=== PATIENT | female | born 1955 | race Caucasian/White ===

== ENCOUNTER → 2016-05-28 | Outpatient (CLI) | payer OTHER ==
[~2016-05-28] MED LIST: CLB200; LRT5
--- NOTE | 2016-05-28 16:39 | MAMMOGRAPHY REPORT ---
BILATERAL DIGITAL SCREENING MAMMOGRAM WITH CAD: 05/28/2016 CLINICAL HISTORY: Routine screening. Patient has no complaints. TECHNIQUE: Bilateral CC, MLO and repeat right CC views were obtained. Current study was also evalua matthias with a Computer Aided Detection (CAD) system. COMPARISON: Comparison is made to exams dated: 05/26/2015 mammogram, 03/24/2013 mammogram, 05/24/2014 mammogram, 03/23/2012 mammogram, 03/18/2011 mammogram, and 03/07/2010 mammogram - [facility]. BREAST COMPOSITION: There are scattered areas of fibroglandular density in both breasts. FINDINGS: There are benign appearing punctate microcalcifications scattered throughout each breast, stable compared to prior exams. A few benign round calcifications as well. No suspicious mass, arc hitectural distortion or cluster of suspicious microcalcifications is seen. IMPRESSION: ACR BI-RADS CATEGORY 1: NEGATIVE There is no mammographic evidence of malignancy. A 1 year screening mammogram is recommended. The p atient will receive written notification of the results. Approximately 10% of breast cancers are not detected with mammography. A negative mammographic repor t should not delay biopsy if a clinically suggestive mass is present. Maddison Figueroa M.D. ay/:05/28/2016 16:30:15 Dentist: Vanessa HAQUE)(M), [facility] letter sent: Normal 1/2 BI-RADS Code: ACR BI-RADS Category 1: Negative
== END | disposition home or self-care (01) ==
LOC: C.MAMM 12:57
PROVIDERS: ATTEND Family Medicine
DX: Z12.31 Encounter for screening mammogram for malignant neoplasm of breast (principal)

== ENCOUNTER → 2017-05-30 | Outpatient (CLI) | payer OTHER ==
--- NOTE | 2017-06-02 07:33 | MAMMOGRAPHY REPORT ---
BILATERAL DIGITAL SCREENING MAMMOGRAM TOMOSYNTHESIS WITH CAD: 05/30/2017 CLINICAL HISTORY: Routine screening. Patient has no complaints. TECHNIQUE: Breast tomosynthesis in addition to standard 2D mammography was performed. Current study was also evaluated with a Computer Aided Detection (CAD) system. COMPARISON: Comparison is made to exams dated: 05/28/2016 mammogram, 05/26/2015 mammogram, 05/24/2014 m ammogram, 03/24/2013 mammogram, 03/23/2012 mammogram, and 03/18/2011 mammogram - [facility]. BREAST COMPOSITION: There are scattered areas of fibroglandular density in both breasts. FINDINGS: No suspicious masses, calcifications, or areas of architectural distortion are noted in ei ther breast. There has been no significant interval change compared to prior exams. IMPRESSION: ACR BI-RADS CATEGORY 1: NEGATIVE There is no mammographic evidence of malignancy. A 1 year screening mammogram is recommended. The pa tient will receive written notification of the results. Approximately 10% of breast cancers are not detected with mammography. A negative mammographic report should not delay biopsy if a clinically suggestive mass is present. Karrie Alexander M.D. /:05/30/2017 15:12:57 Design Printing Machine Set Up Operator: Haylee Be, M, [facility] letter sent: Normal 1/2 BI-RADS Code: ACR BI-RADS Category 1: Negative
== END | disposition home or self-care (01) ==
LOC: C.MAMM 13:24
PROVIDERS: ATTEND Family Medicine
DX: Z12.31 Encounter for screening mammogram for malignant neoplasm of breast (principal)

== ENCOUNTER 2018-06-17 06:07 | Inpatient (IN) ==
--- NOTE | 2018-05-25 09:41 | Anesthesiology Consultation ---
Date of Service May 25, 2018 Assessment & Plan (1) Encounter for pre-operative examination: PCP CLEARANCE (MARJ) 05/25: "She is at acceptable risk to proceed with planned surgery." Chart Review Chart Review: Acceptable Risk for Surgery and Patient seen in Pre Admission Testing Teaching & Discussion Instructed NPO after midnight before surgery, except medications with 15 cc of water. Medication instructions provided according to the PAT guidelines. History Surgery Operation Date: 06/17/18 07:00 Proposed Procedures p Total Knee Revision Total Knee Arthroplasty - Kyler Alicia MD Height/Weight Height: 5 ft 6 in Weight: 138.1 kg Allergies Allergy/AdvReac Type Severity Reaction Status Date / Time No Known Allergies Allergy Unknown Verified 05/20/18 15:27 Medications Home Medications Medication Instructions Recorded Confirmed Last Taken ascorbic acid (vitamin C) [Vitamin 500 mg PO DAILY 05/20/18 05/20/18 Unknown C] calcium polycarbophil [Fiber-Tabs] 1 tab PO DAILY 05/20/18 05/20/18 Unknown vitamin B complex 1 tab PO DAILY 05/20/18 05/20/18 Unknown acetaminophen [Tylenol] 325 mg PO Q6H PRN 05/25/18 05/25/18 Unknown ibuprofen 200 mg PO QID PRN 05/25/18 05/25/18 Unknown loratadine [Claritin] 10 mg PO DAILY PRN 05/25/18 05/25/18 Unknown naproxen [Naprosyn] 500 mg PO BID PRN 05/25/18 05/25/18 Unknown Past Medical History Medical History Cancer ENDOMETRIAL CANCER, s/p hysterectomy 2012 GERD (gastroesophageal reflux disease) Morbid obesity Osteoarthritis Scoliosis Past Family History Family History Grandmother (Maternal) Family history of diabetes mellitus Past Surgical History Surgical History Family history of reaction to anesthesia MOTHER AND FATHER EXTREMELY SLOW TO WAKE UP. History of adenoidectomy History of ankle surgery LEFT ANKLE RECONSTRUCTION History of cholecystectomy History of tonsillectomy History of tooth extraction History of total abdominal hysterectomy and bilateral salpingo-oophorectomy History of total knee arthroplasty Right and Left, 3 wks apart 2006 Ovarian cyst REMOVED (WEIGHED 5LB) Strabismus REPAIRED X 2 Past Anesthesia History No Hx of Anesthesia Complications and No Family Hx of Anesthesia Complications (Parents "slow to wake" but no h/o reintubation) History of PONV Yes (single episode, may have been 2/2 demerol) Motion Sickness Screening History of Motion Sickness: Yes Social History Smoking Status: Never smoker Do You Dip or Chew Tobacco: No Hx Alcohol Use: No Hx Substance Use: No substance use type: does not use Exercise / Class Metabolic Activity III < 4 Walking/Shop/Light housework (avoids stairs currently 2/2 knee pain but denies SOB and CP with ambulation) Review of Systems Pt denies any recent chest pain, shortness of breath, palpitations, cough, fever or URI. Physical Exam Vital Signs BP: 138/84 (pt states always elevated in medical settings, but 120s/70s at grocery store machine) P: 76 bpm SPO2: 97% RA T: 98.1 F R: 16 Constitutional + morbidly obese Hunched back in appearance. ENMT Mouth: + dental restorations (few caps); no chipped teeth and no loose teeth Thyromental Distance: > or= 3.5 Finger Breadths (4) Mallampati Class: III Neck + short neck, + thick neck and + limited neck extension Respiratory normal respiratory effort Auscultation: lungs clear to auscultation bilaterally Cardiovascular Rate/Rhythm: regular rate and regular rhythm Heart Sounds: no murmur Vessels: no carotid bruit Testing Electrocardiogram Date: 05/25/18 Findings: + NSR @ (83 with 1st degree AV block) Chest X-Ray Date: 05/25/18 Findings: + NAD The heart is mildly enlarged. Laboratory Results 05/25/18 09:52 05/25/18 09:52 Blood Type O Positive 05/25/18 09:52 Antibody Screen NEGATIVE 05/25/18 09:52 PT 10.8 Seconds (9.0-12.0) 05/25/18 09:52 INR 1.1 (0.9-1.1) 05/25/18 09:52 APTT 28.5 Seconds (21.0-31.0) 05/25/18 09:52 Urine Color Yellow 05/25/18 09:52 Urine Appearance Clear (Clear) 05/25/18 09:52 Urine pH 7.5 (4.5-7.5) 05/25/18 09:52 Ur Specific [place] 1.009 (1.000-1.030) 05/25/18 09:52 Urine Protein Negative (Negative) 05/25/18 09:52 Urine Glucose (UA) Negative (Negative) 05/25/18 09:52 Urine Ketones Negative (Negative) 05/25/18 09:52 Urine Nitrite Negative (Negative) 05/25/18 09:52 Ur Leukocyte Esterase Negative (Negative) 05/25/18 09:52 Urine WBC (Auto) 0 /hpf (0-5) 05/25/18 09:52 Urine RBC (Auto) 10-30 /hpf (0-4) H 05/25/18 09:52 U Hyaline Cast (Auto) 0 /lpf (0-5) 05/25/18 09:52 U Epithel Cells (Auto) 0-5 /lpf (0-5) 05/25/18 09:52 Urine Bacteria (Auto) Negative (Negative) 05/25/18 09:52
--- NOTE | 2018-05-25 09:48 | PAT Medication Instructions ---
Medication Instructions Date of Service May 25, 2018 Home Medications ascorbic acid (vitamin C) 500 mg PO DAILY calcium polycarbophil [Fiber-Tabs] 1 tab PO DAILY vitamin B complex 1 tab PO DAILY acetaminophen [Tylenol] 325 mg PO Q6H PRN ibuprofen 200 mg PO QID PRN loratadine [Claritin] 10 mg PO DAILY PRN naproxen [Naprosyn] 500 mg PO BID PRN ASK your surgeon for instructions ibuprofen 200 mg PO QID PRN naproxen [Naprosyn] 500 mg PO BID PRN DO NOT take the morning of surgery ascorbic acid (vitamin C) 500 mg PO DAILY calcium polycarbophil [Fiber-Tabs] 1 tab PO DAILY vitamin B complex 1 tab PO DAILY loratadine [Claritin] 10 mg PO DAILY PRN Take morning of surgery With a small sip of water, OTHERWISE NOTHING TO EAT OR DRINK AFTER MIDNIGHT: acetaminophen [Tylenol] 325 mg PO Q6H PRN (if needed) Take evening before surgery acetaminophen [Tylenol] 325 mg PO Q6H PRN (if needed) loratadine [Claritin] 10 mg PO DAILY PRN (if needed) Other Notes If you have any questions please call us at [phone] or [phone] or [phone] or [phone]
[2018-05-25 10:36] LABS: Basophils # (auto) 0.01 K/uL (0-0.2); Basophils % (auto) 0.2 %; Eosinophils # (auto) 0.09 K/uL (0-0.5); Eosinophils % (auto) 1.9 %; Hematocrit (blood only) 39.5 % (37-47); Hemoglobin 13.4 g/dL (12.0-16.0); Immature Granulocytes # (auto) 0.01 K/uL (0.00-0.02); Immature Granulocytes % (auto) 0.2 %; Lymphocytes # (auto) 1.77 K/uL (1.2-3.4); Lymphocytes % (auto) 37.3 %; Mean Corpuscular Hgb Conc 33.9 g/dL (32-36); Mean Corpuscular Volume 89.6 fL (80-100); Mean Platelet Volume 9.6 fL (7.4-10.4); Monocytes # (auto) 0.45 K/uL (0.11-0.59); Monocytes % (auto) 9.5 %; Neutrophils # (auto) 2.41 K/uL (1.4-6.5); Neutrophils % (auto) 50.9 %; Platelet Count 165 K/uL (130-400); RDW Coefficient of Variation 12.6 % (11.5-14.5); RDW Standard Deviation 40.9 fL (36.4-46.3); Red Blood Count 4.41 M/uL (4.2-5.4); White Blood Count 4.74 K/uL (4.8-10.8)
[2018-05-25 10:38] LABS: Appearance Urine Clear (Clear); Bacteria Urine Automated Negative (Negative); Bilirubin Urine Negative (Negative); Blood Urine 2+ (Negative); Cast Urine Automated 0 /lpf (0-5); Color Urine Yellow; Epithelial Cell Urine Auto 0-5 /lpf (0-5); Glucose Urine UA Negative (Negative); Ketones Urine Negative (Negative); Leukocyte Esterase Urine Negative (Negative); Nitrite Urine Negative (Negative); Protein Urine Negative (Negative); Specific Gravity Urine 1.009 (1.000-1.030); Urobilinogen Urine Negative (Negative); WBC Urine Automated 0 /hpf (0-5); pH Urine 7.5 (4.5-7.5)
[2018-05-25 10:47] LABS: INR 1.1 (0.9-1.1); Partial Thromboplastin Ratio 1.1; Partial Thromboplastin Time 28.5 Seconds (21.0-31.0); Prothrombin Time 10.8 Seconds (9.0-12.0)
--- NOTE | 2018-05-25 10:50 | XRay Report ---
XR chest Pre-admission PA/Lat CLINICAL HISTORY: Preoperative chest COMPARISON STUDY: No previous studies for comparison. FINDINGS: The heart is mildly enlarged. There is no failure. There is no focal pulmonary consolidatio n. There are no pleural effusions.[ IMPRESSION: No active disease in the chest. Electronically signed by: Andrés Palma M.D. 05/25/2018 10:49 AM
[2018-05-25 10:56] LABS: BUN Creatinine Ratio 22.8 (10-20); Calcium 8.8 mg/dl (8.5-10.1); Creatinine Clr Calc Pharmacy 104.5 ml/min; Est GFR (African American) 93.1; Est GFR (Non-African American) 80.3; Potassium 3.7 mmol/L (3.5-5.1)
[2018-05-25 11:03] LABS: C Reactive Protein 0.42 mg/dl (0-0.29)
--- NOTE | 2018-05-28 19:20 | History and Physical Report ---
DATE OF ADMISSION: 06/17/2018 CHIEF COMPLAINT: Left knee pain. HISTORY OF PRESENT ILLNESS: This 62-year-old white female presents to the office with complaints of left knee pain that has been ongoing since 2016. The patient previously had a right total knee replacement done in 2006. She had her left knee done 3 weeks later. Initially, she did well. In approximately 2016 she developed knee pain that progressed over the course of a year. Subsequent films revealed loosening of her knee prosthesis. No numbness or tingling. She does note increased bowing of her left leg. She also notes occasional night pain and swelling. No loss of motion. Lab work, x-rays and bone scan have been obtained. She elects to proceed with surgical intervention in hopes of alleviating her pain. She does have a known leg length discrepancy and does require external lifts on her shoes. Knee pain is affecting her ADLs. It is worse with weightbearing. She elects to proceed with left knee revision total knee arthroplasty versus cement spacer at this time. PAST MEDICAL HISTORY: History of seasonal allergies, osteoarthritis, chronic back pain, history of endometrial cancer, GERD, and obesity. PREVIOUS SURGERIES: Corrective eye surgery in 1962 and 1978, left ankle surgery in 1986, cholecystectomy in 1989, ovarian cyst excision 1992, bilateral knee replacements 2006, hysterectomy in 2012, dental surgery. ALLERGIES: NKDA. CURRENT MEDICATIONS: Claritin 10 mg p.o. daily, Motrin 400 mg p.r.n., Tylenol 500 mg 2 tablets p.o. q. 6 hours p.r.n., Zantac 300 mg p.o. at bedtime. SOCIAL HISTORY: The patient is . No tobacco use, no ETOH use. Employed. FAMILY HISTORY: Significant for breast cancer, otherwise unremarkable. REVIEW OF SYSTEMS: A total of 10 systems are reviewed with the patient and her significant other only for above stated conditions. PHYSICAL EXAMINATION: GENERAL: Well-developed, well-nourished middle aged white female in no acute distress. Sitting in a chair. Alert and oriented. Obese. SKIN: Warm and dry with good turgor. No rashes or lesions. No ecchymosis or erythema. No visible intraarticular effusion at this time. HEENT: Normocephalic, atraumatic. Eyes PERRLA, EOMI. Nares patent bilaterally without turbinate enlargement. Oropharynx without erythema or exudate. No lesions noted. Uvula midline. Oral mucosa moist. Fair dentition, caps and fillings are noted. HEART: RRR. No MGR. LUNGS: Clear to auscultation bilaterally. No crackles, rhonchi or wheezing. Good air movement. ABDOMEN: Obese. Bowel sounds present x4, soft, nontender. No organomegaly. No masses. MUSCULOSKELETAL: Left knee evaluation reveals no intra-articular effusion. She has full terminal extension. Flexion to greater than 90 degrees. Varus alignment. She has pain with palpation over the medial joint line. There is pain with stressing of the MCL and LCL. No laxity. No discomfort with palpation around her patella, patellar tendon, or quadriceps tendon. No open wounds. Obese extremity. NEUROLOGIC: Cranial nerves II-XII are intact. Gross sensation is intact across the left leg by soft touch. Peripheral pulses are 2+. DATA: Radiographic imaging previously obtained shows subsidence of her tibial component. Bone scan reveals uptake over the medial tibia consistent with loosening. Sed rate is 11. C-reactive protein is less than 1. IMPRESSION: Left knee aseptic loosening total knee arthroplasty. PLAN: Informed written consent to proceed with left total knee arthroplasty revision versus cement spacer placement has already been obtained. Postoperative prescriptions for Percocet and Coumadin will be provided at the time of hospital discharge. Preoperative lab work, EKG, and chest x-ray have been ordered. PAT appointment and appointment for clearance from her PCP have been established. Prescription was provided for a walker. Anticipate discharge to home with home health services.
[~2018-06-17 06:07] MED LIST changes: +CEFAZOLIN 2000MG 2,000 MG/15 ML SYR IV SCH; +CEFAZOLIN 3000MG 65 ML IV SCH; -CLB200; +LR 500ML BOLUS, THEN 15ML/HR IV SCH; +LR 60ML/HR IV SCH; -LRT5; +ROPIVACAINE 0.5% HCL/PF 150 MG, BUPIVACAINE 0.5% MPF 30 ML, EPINEPHrine 0.15 MG, Ketoro... INFIL SCH; +TRANEXAMIC ACID 1,000 MG **IV Pre-op IV SCH; +VANCOMYCIN HCL 1,000 MG/270 ML BAG IV SCH; +VANCOMYCIN HCL 2,000 MG in SODIUM CHLORIDE 0.9% 500 ML IV SCH
[2018-06-17] MEDS ORDERED: ROPIVACAINE 0.5% 5 MG/ML 30 ML VIAL ONE (06:37)
[2018-06-17] MEDS ORDERED: EPINEPHrine INJ 1 MG/ML AMP ONE (06:37)
[2018-06-17] MEDS ORDERED: BUPIVACAINE 0.5 % 5 MG/1 ML PF 10ML VIAL ONE (06:37)
--- NOTE | 2018-06-17 06:37 | History & Physical Bridge Note ---
Date of Service June 17, 2018 History & Physical Bridge Note I have examined the patient, reviewed the History & Physical and in the interval since the performance of the History & Physical I have noted the following changes of clinical significance: consent verified.no changes noted
[2018-06-17] MEDS ORDERED: LABETALOL HCL IV 5 MG/ML 20ML IV PRN (07:36)
[2018-06-17] MEDS ORDERED: ePHEDrine sulfate 50 MG/ML AMP IV PRN (07:36)
[2018-06-17] MEDS ORDERED: ONDANSETRON INJ 2 MG/ML 2 ML VIAL IV PRN ×2 (07:36→13:27)
[2018-06-17] MEDS ORDERED: HYDROmorphone INJ 1 MG/ML SYRINGE IV PRN (07:36)
[2018-06-17] MEDS ORDERED: ATROPINE SULFATE 0.1 MG/ML 10ML SYR IV PRN (07:36)
[2018-06-17] MEDS ORDERED: PHENYLEPHRINE 100MCG/ML 5ML SYR IV PRN (07:36)
[2018-06-17] MEDS ORDERED: fentaNYL citrate 100 MCG/2 ML VIAL IV PRN (07:36)
[2018-06-17] MEDS ORDERED: MEPERIDINE HCL 25 MG/ML CARP IV PRN (07:36)
[2018-06-17] MEDS ORDERED: fentaNYL citrate 100 MCG/2 ML VIAL ONE ×3 (08:02→12:05)
[2018-06-17] MEDS ORDERED: MIDAZOLAM HCL 1 MG/ML 2ML VIAL ONE ×2 (08:03→09:20)
[2018-06-17] MEDS ORDERED: ORTHO JOINT ANESTHETIC ONE (08:31)
[2018-06-17] MEDS ORDERED: POVIDONE-IODINE OP SOLN 30 ML BTL ONE (08:31)
[2018-06-17] MEDS ORDERED: PROPOFOL IV EMULSION 10 MG/ML 20 ML VIAL IV ONE ×5 (08:31→11:03)
[2018-06-17] MEDS ORDERED: KETAMINE HCL INJ 50 MG/ML 10 ML VIAL ONE (09:47)
[2018-06-17] MEDS ORDERED: ONDANSETRON INJ 2 MG/ML 2 ML VIAL ONE (09:47)
--- NOTE | 2018-06-17 11:57 | Operative Report ---
Post Operative Report Pre & Post Diagnosis Operation Date: 06/17/18 08:50 Pre-Op Diagnosis: Left Knee Total Knee Arthroplasty Aseptic Loosening Post-Op Diagnosis: Left Knee Total Knee Arthroplasty Aseptic Loosening Procedure Operation Date: 06/17/18 08:50 Actual Procedures p Left Total Knee Revision (Left) - Kyler Alicia MD Surgeon KATERYNA Alicia MD Automobile Relocation Engineer ted Estimated Blood Loss 100 Findings Consistent with Post-Op Diagnosis Specimens see operative report Drains none Complications none Disposition Accompanied Patient To Recovery: Yes Disposition: Recovery Room Indications This 62-year-old white female presented to the office with complaints of left knee pain that had been ongoing for months. Patient previously underwent total knee arthroplasty by another provider over 10 years ago. New radiographic imaging revealed failure of her left total knee implant. She elected to proceed with surgical intervention in hopes of alleviating her pain and improving her function. Medical clearance was obtained. Description of Procedure Patient was administered a spinal anesthetic and regional block and was then taken to the operating room where she was given sedation. She was prepped and draped in the usual sterile fashion. Please see Dr. Alicia's operative report for specifics of the procedure. I was present for the entire case from initial patient positioning through final wound closure. Assistance was provided in tissue retraction, hemostasis, hardware removal, trial implant placement, final implant placement, and final wound closure. Patient was taken to the recovery room in satisfactory condition. I attest to the content of the Intraoperative Record and any orders documented therein. Any exceptions are noted below.
--- NOTE | 2018-06-17 12:11 | Operative Report ---
DATE OF OPERATION: 06/17/2018 SURGEON: Kyler Alicia MD. ESCAPE WHEEL TOOTH CUTTER: Jeremiah Jorgensen PA-C. No resident or fellow available. PREOPERATIVE DIAGNOSIS: Loose subsiding left total knee replacement, tibial tray with poly wear. POSTOPERATIVE DIAGNOSIS: Loose subsiding left total knee replacement, tibial tray with poly wear. OPERATION PERFORMED: Revision left total knee replacement using metaphyseal sleeve system by [employer] rotating platform. SUMMARY OF IMPLANTS: Size 2.5 TC3 femur stem 14 x 75, distal augments medial and lateral 4 mm each. No posterior augments. A bolt +2, adapter 5, sleeve is a 31. On the tibia, it is a 2.5 tray, sleeve is 37, stem is 14 x 75, inserts 2.5 x 12.5 TC3 posterior cruciate substituting. Patella was left alone. ESTIMATED BLOOD LOSS: 100 mL. CRYSTALLOID: Per anesthesia. PROPHYLAXIS: DVT prophylaxis will be with Coumadin. PERIOPERATIVE SITUATION: Medically cleared female with intractable pain, has had 2 CRPs and 2 sed rates, which have been in normal limits. Has a bone scan, which reveals loosening, but no sepsis. There was no fluid to aspirate to get any type of other culture. She was prepared for knee revision versus spacer pending intraoperative findings. Intraoperative culture: Gram stain was negative. Culture is pending. Did not do frozen sections. Poly wear was high. Tibia was subsided and loose. Femur was solid. DESCRIPTION OF PROCEDURE: The patient was properly identified, site verified, consent verified, antibiotics confirmed as being given. The left lower extremity was prepped and draped in the usual routine fashion. Tourniquet was inflated to 300 mmHg after exsanguination of limb with a rubber Esmarch bandage for a total of approximately 118 minutes. Midline exposure was utilized and extended proximally and distally about 2 cm. Full thickness flaps were raised. Parapatellar arthrotomy performed. The joint was opened. There was a lot of scar tissue, lot of synovial reaction to poly. This was all excised. The extensor mechanism was scarred. It was released carefully on the lateral side. The patella could then be everted. The knee was then flexed. The tibia was subsided and not obviously able to be pulled up by hands, so the femur was loosened first and then the poly was removed and then the femur removed and then the tibia was lifted off. All the cement was removed. There was no fracture identified anywhere. All the soft tissue was then debrided. The posterior capsule needed to be released. The tibia was then broached and reamed with the implants as noted above. Cleanup cuts were made. Once the trials were being placed, it could be seen that the augments posteriorly did not need to be placed. These were removed and then the appropriate cuts made revising the femur slightly posteriorly and then the trial fit well. There was good stability in flexion, but slight hyperextension, so we went from a 10 to 12.5 spacer. This made it slightly more difficult to reduce, but the extension was good. All trial implants were then removed. The permanents were then cemented into position. Once the cement was at 12 minutes, the tourniquet was deflated. Minor bleeding points controlled with electrocautery. After 14 minutes, the knee was flexed, the trial spacer removed, the permanent spacer seated. The knee was irrigated with Betadine, Pulsavac, Betadine and then closed after some Orthomix injection into the extensor mechanism with #2 Vicryl, 2-0 Vicryl and stainless steel clips. A Carlos Perez dressing was applied. The patient will have a Prevena placed tomorrow, medically indicated based on her high BMI. She will follow up on Coumadin daily until discharge, likely discharge on 4 mg. Keep INR 1.8-2.2. Pathology pending on bone and cultures pending. I attest to the content of the Intraoperative Record and any orders documented therein. Any exception s are noted below.
--- NOTE | 2018-06-17 12:20 | Anesthesiology Progress Note ---
Date of Service June 17, 2018 Anesthesia Post Procedure Vital Signs Vital Signs: Temp Pulse Pulse Resp BP Pulse Ox 06/17/18 11:55 36.0 C L 99 H 22 119/80 100 06/17/18 07:00 36.6 C 91 H 20 145/81 H 99 Pain Intensity Lower Back: Pain Intensity: 4 Notes Mental Status: alert / awake / arousable Patient Amnestic to Procedure: Yes Nausea / Vomiting: adequately controlled Pain: adequately controlled Airway Patency, RR, SpO2: stable & adequate BP & HR: stable & adequate Hydration State: stable & adequate Neuraxial Anesthesia: was administered and sensory block is resolving Anesthetic Complications: no major complications apparent and Pt Satisfied with anesthetic care
--- NOTE | 2018-06-17 12:40 | Progress Note ---
DATE: 06/17/2018 SUBJECTIVE: Status post revision left total knee replacement. At this point in time, the patient is sitting up in bed comfortably, complains of some back pain, otherwise no issues; however, she still has some numbness in her feet. She denies chest pain, shortness of breath, fever, chills, nausea, vomiting or headache. OBJECTIVE: Vital signs are stable. She is afebrile. Neurovascular check is limited by spinal that is starting to wear off. Wound dressing clean, dry and intact. Postop x-rays, multiple views reveal no sign of any fracture, good alignment and implant position is excellent. ASSESSMENT: Overall, doing well. Continue with postop care pathway. Mobilize weightbearing to tolerance with knee immobilizer on. Place Prevena on tomorrow.
--- NOTE | 2018-06-17 12:44 | XRay Report ---
ADDENDUM Addendum: The apparent lucency within the medial metaphysis of the left tibia is likely related to ce ment and is expected given the surgical procedure. This does not reflect a fracture. Findings discuss ed with Dr. Alicia at time of addendum. Electronically signed by: Mian Torres M.D. 06/17/2018 1:28 PM ORIGINAL REPORT XR knee LT 2V routine CLINICAL HISTORY: Postoperative evaluation. COMPARISON: Knee radiographs January 05, 2018. FINDINGS: Alignment of the revision longstem constrained total left knee arthroplasty is anatomic. A lucency within the medial metaphysis of the left tibia is age indeterminate. There are skin jj. There are no unexpected radiopaque foreign bodies. IMPRESSION: 1. Status post revision total left knee arthroplasty. Hardware intact. No unexpected radiopaque forei gn bodies. 2. Age indeterminate lucency within the medial metaphysis of the left tibia. Electronically signed by: Mian Torres M.D. 06/17/2018 12:43 PM
[2018-06-17] MEDS ORDERED: VANCOMYCIN CONSULT ACTIVE PRN (13:27)
[2018-06-17] MEDS ORDERED: MAGNESIUM HYDROXIDE SUSP 30 ML UDC PO PRN (13:27)
[2018-06-17] MEDS ORDERED: NALOXONE HCL 0.4 MG/1 ML VIAL/CARP IV PRN (13:27)
[2018-06-17] MEDS ORDERED: DiphenhydrAMINE HCL 50 MG/ML VIAL IV PRN (13:27)
[2018-06-17] MEDS ORDERED: BISACODYL 10 MG SUPP PR PRN (13:27)
[2018-06-17] MEDS ORDERED: ALUMINUM/MAGNESIUM SUSP 30 ML UDC PO PRN (13:27)
[2018-06-17] MEDS ORDERED: HYDROmorphone INJ 0.5 MG/0.5 ML SYR IV PRN (13:27)
[2018-06-17] MEDS ORDERED: OXYCODONE HCL IR 5 MG TAB (IMMEDIATE RELEASE) PO PRN (13:27)
[2018-06-17] MEDS ORDERED: LORATADINE 10 MG TAB PO PRN (13:27)
[2018-06-17] MEDS ORDERED: METOCLOPRAMIDE HCL INJ 5 MG/ML 2 ML VIAL IV PRN (13:27)
[2018-06-17] MEDS ORDERED: SODIUM CHLORIDE 0.9% 1000ML 1,000 ML IV SCH (13:40)
[2018-06-17] MEDS: ORTHO WARFARIN NOMOGRAM SCH (14:42)
[2018-06-17] MEDS: KETOROLAC 30 MG/ML VIAL IV SCH ×2 (14:49→19:29)
[2018-06-17] MEDS: ACETAMINOPHEN 500 MG TAB PO SCH ×2 (14:49→22:29)
[2018-06-17] MEDS ORDERED: WARFARIN SOD 5 MG TAB PO ONE (16:00)
[2018-06-17] MEDS ORDERED: TRANEXAMIC ACID 1,000 MG in 0.9 % SODIUM CHLORIDE 100 ML IV ONE (18:00)
[2018-06-17] MEDS ORDERED: VANCOMYCIN HCL 2,000 MG in SODIUM CHLORIDE 0.9% 500 ML IV SCH (19:00)
[2018-06-17] MEDS: FERROUS GLUCONATE 324 MG TAB PO SCH (20:27)
[2018-06-17] MEDS: DOCUSATE SODIUM 100 MG CAP PO SCH (20:28)
[2018-06-17] MEDS ORDERED: SENNA 8.6 MG TAB PO SCH (21:00)
[2018-06-18] MEDS: KETOROLAC 30 MG/ML VIAL IV SCH ×2 (01:39→08:22)
[2018-06-18] MEDS: ACETAMINOPHEN 500 MG TAB PO SCH ×2 (05:04→11:47)
[2018-06-18 06:04] LABS: Hematocrit (blood only) 29.7 % (37-47); Hemoglobin 9.9 g/dL (12.0-16.0); Mean Corpuscular Hgb Conc 33.3 g/dL (32-36); Mean Platelet Volume 9.6 fL (7.4-10.4); Platelet Count 136 K/uL (130-400); RDW Coefficient of Variation 13.1 % (11.5-14.5); RDW Standard Deviation 42.7 fL (36.4-46.3); White Blood Count 8.51 K/uL (4.8-10.8)
[2018-06-18 06:19] LABS: BUN Creatinine Ratio 24.5 (10-20); Calcium 8.1 mg/dl (8.5-10.1); Creatinine Clr Calc Pharmacy 108.7 ml/min; Est GFR (African American) 97.6; Est GFR (Non-African American) 84.2
[2018-06-18 06:50] LABS: INR 1.1 (0.9-1.1); Prothrombin Time 11.4 Seconds (9.0-12.0)
--- NOTE | 2018-06-18 07:05 | Progress Note ---
DATE: 06/18/2018 SUBJECTIVE: Postop day #1 status post revision left total knee replacement. The patient is doing well. Denies any real chest pain, shortness of breath, fever, chills, nausea, vomiting, headache. Her pain is well controlled. T-max is 37.3. Vital signs are stable. She is afebrile. Hematocrit stable at 29.7. INR is pending. PRP is good. ASSESSMENT: Overall, doing well. Can do a straight leg raise. Neurovascular check is normal. She will have dressing change later today. She will be discharged on Coumadin dose based on INR results today. If INR is 1.5 or less, discharge on 4 mg, if 1.6-2.0 2 mg, if greater than 2 hold. She will return in 2 weeks for staple removal set up with home health for nursing and blood draws only.
--- NOTE | 2018-06-18 07:22 | Discharge Summary ---
CHIEF COMPLAINT: Left knee pain. HISTORY OF PRESENT ILLNESS: The patient underwent elective revision left total knee replacement for aseptic loosening. At this point in time, her hospital course has been uneventful. PAST MEDICAL HISTORY: Positive for allergies, osteoarthritis, chronic back pain, and endometrial cancer, GERD, and obesity. PAST SURGICAL HISTORY: Include eye surgery, ankle surgery, cholecystectomy, ovarian cyst excision, bilateral knee replacements in 2006, hysterectomy in 2013 and dental surgery. ALLERGIES: None. PREADMISSION MEDICATIONS: Include Claritin, Motrin, Tylenol, Zantac. She will be discharged on Percocet for p.r.n. pain and Coumadin to keep INR 1.8-2.0 2 mg, 4 mg if INR is less than 1.5 or less. Today, INR is 1.6-2.0 2 mg, if INR is greater than 2.0 hold. FAMILY HISTORY: Remarkable for breast cancer, otherwise unremarkable. SOCIAL HISTORY: Reveals she is . No tobacco or alcohol use. REVIEW OF SYSTEMS: Reveals no chest pain, shortness of breath, fever, chills, nausea, vomiting, or headache. ASSESSMENT: Overall, doing well. Hospital course has been uneventful. We will discharge to home today after PT, OT. Follow up in [address] Prevena wound VAC based on high BMI and high risk for wound issues. WILFRIDO
--- NOTE | 2018-06-18 07:51 | Anesthesiology Progress Note ---
Date of Service June 18, 2018 Anesthesia Post Procedure Vital Signs Vital Signs: Temp Pulse Pulse Resp BP Pulse Ox 06/18/18 03:05 37.3 C 82 16 114/60 94 06/17/18 23:01 37.1 C 91 H 16 128/69 94 06/17/18 19:59 37.2 C 84 18 119/79 96 06/17/18 16:08 36.4 C L 91 H 18 129/86 97 06/17/18 15:05 36.4 C L 69 18 129/77 100 06/17/18 14:09 67 18 135/77 100 06/17/18 13:38 64 18 119/79 100 06/17/18 13:15 36.3 C L 78 18 136/80 100 06/17/18 12:45 36.4 C L 68 14 139/76 99 06/17/18 12:35 67 11 L 134/90 100 06/17/18 12:25 86 15 125/79 100 06/17/18 12:15 91 H 16 153/94 H 100 06/17/18 12:05 64 16 134/82 97 06/17/18 11:55 36.0 C L 99 H 22 119/80 100 Pain Intensity Lower Back: Pain Intensity: 4 Left Knee: Pain Intensity: 1 Notes Mental Status: alert / awake / arousable and participated in evaluation Patient Amnestic to Procedure: Yes Nausea / Vomiting: adequately controlled Pain: adequately controlled Airway Patency, RR, SpO2: stable & adequate BP & HR: stable & adequate Hydration State: stable & adequate Neuraxial Anesthesia: was administered and sensory block resolved Anesthetic Complications: no major complications apparent and Pt Satisfied with anesthetic care
[2018-06-18] MEDS ORDERED: dexAMETHasone 10 MG in SYRINGE 0 ML IV SCH (08:00)
[2018-06-18] MEDS: DOCUSATE SODIUM 100 MG CAP PO SCH (08:21)
[2018-06-18] MEDS: FERROUS GLUCONATE 324 MG TAB PO SCH (08:21)
[2018-06-18] MEDS ORDERED: MULTIVITAMIN TAB PO SCH (09:00)
[2018-06-18] MEDS: ORTHO WARFARIN NOMOGRAM SCH (11:49)
[2018-06-18] MEDS ORDERED: WARFARIN SOD 5 MG TAB PO SCH (16:00)
== END 2018-06-18 13:27 | disposition home health service (06) | DRG 467 ==
LOC: ASU 06:07 → 3E 12:08

== ENCOUNTER 2023-01-07 08:23 | Observation (INO) ==
--- NOTE | 2022-12-02 10:51 | PAT Medication Instructions ---
Medication Instructions Date of Service December 02, 2022 Home Medications Medication Instructions Recorded azelastine 137 mcg (0.1 %) nasal 1 spray intranasal DAILY PRN 05/28/22 spray aerosol Congestion #30 mL fluticasone propionate 50 1 spray intranasal DAILY PRN 05/28/22 mcg/actuation nasal Congestion #16 grams spray,suspension olopatadine 0.2 % eye drops 1 drp ophthalmic (eye) DAILY PRN 05/28/22 ALLERGIES #2.5 mL duloxetine 60 mg capsule,delayed 60 mg PO QPM #90 caps 11/08/22 release Lactobacillus rhamnosus GG 10 billion cell capsule (Culturelle) 1 cap PO QPM acetaminophen 325 mg capsule (Tylenol) 650 mg PO Q8H PRN Pain calcium carbonate 600 mg calcium (1,500 mg) tablet 600 mg PO BID cetirizine 10 mg capsule (Zyrtec) 10 - 40 mg PO UD PRN environmental allergies/hives cholecalciferol (vitamin D3) 25 mcg (1,000 unit) capsule 25 mcg PO QPM famotidine 20 mg tablet (Pepcid) 20 mg PO QPM ibuprofen 200 mg tablet 200 mg PO UD PRN Pain naproxen 250 mg tablet 250 mg PO UD PRN Pain turmeric 400 mg capsule 400 mg PO QPM Daily letrozole 2.5 mg tablet (Femara) 2.5 mg PO QPM vitamin B complex 1 tab PO QPM azelastine 137 mcg (0.1 %) nasal spray aerosol 1 spray intranasal DAILY PRN Congestion fluticasone propionate 50 mcg/actuation nasal spray,suspension 1 spray intranasal DAILY PRN Congestion olopatadine 0.2 % eye drops 1 drp ophthalmic (eye) DAILY PRN ALLERGIES duloxetine 60 mg capsule,delayed release 60 mg PO QPM ASK your surgeon for instructions ibuprofen 200 mg tablet 200 mg PO UD PRN Pain naproxen 250 mg tablet 250 mg PO UD PRN Pain ASK your prescriber and surgeon letrozole 2.5 mg tablet (Femara) 2.5 mg PO QPM STOP taking 2 weeks before surgery turmeric 400 mg capsule 400 mg PO QPM Daily DO NOT take the morning of surgery calcium carbonate 600 mg calcium (1,500 mg) tablet 600 mg PO BID cetirizine 10 mg capsule (Zyrtec) 10 - 40 mg PO UD PRN environmental allergies/hives Take morning of surgery With a small sip of water, OTHERWISE NOTHING TO EAT OR DRINK AFTER MIDNIGHT: acetaminophen 325 mg capsule (Tylenol) 650 mg PO Q8H PRN Pain (if needed) azelastine 137 mcg (0.1 %) nasal spray aerosol 1 spray intranasal DAILY PRN Congestion (if needed) fluticasone propionate 50 mcg/actuation nasal spray,suspension 1 spray intranasal DAILY PRN Congestion (if needed) olopatadine 0.2 % eye drops 1 drp ophthalmic (eye) DAILY PRN ALLERGIES (if needed) Take evening before surgery Lactobacillus rhamnosus GG 10 billion cell capsule (Culturelle) 1 cap PO QPM acetaminophen 325 mg capsule (Tylenol) 650 mg PO Q8H PRN Pain (if needed) calcium carbonate 600 mg calcium (1,500 mg) tablet 600 mg PO BID cetirizine 10 mg capsule (Zyrtec) 10 - 40 mg PO UD PRN environmental allergies/hives (if needed) cholecalciferol (vitamin D3) 25 mcg (1,000 unit) capsule 25 mcg PO QPM famotidine 20 mg tablet (Pepcid) 20 mg PO QPM vitamin B complex 1 tab PO QPM azelastine 137 mcg (0.1 %) nasal spray aerosol 1 spray intranasal DAILY PRN Congestion (if needed) fluticasone propionate 50 mcg/actuation nasal spray,suspension 1 spray intranasal DAILY PRN Congestion (if needed) olopatadine 0.2 % eye drops 1 drp ophthalmic (eye) DAILY PRN ALLERGIES (if needed) duloxetine 60 mg capsule,delayed release 60 mg PO QPM Other Notes If you have any questions please call us at [phone] or [phone] or [phone] or [phone]
--- NOTE | 2022-12-05 13:19 | Anesthesiology Consultation ---
Date of Service December 05, 2022 Assessment & Plan (1) Encounter for pre-operative examination: - awaiting PCP response to workload note. - PCP pre-operative clearance 11/26/22: "...R rotator cuff tear, pre-op exam: Risks and benefits discussed with patient of operative procedure. Patient is at acceptable risk for pursuing surgical intervention. To complete pre-op testing through orthopedics. Allergy-- diagnosed with chronic idiopathic urticaria: Zyrtec BID, Azelastine and Flonase nasal spray..." - Outpatient joint assessment: Patient is currently scheduled for inpatient pathway. If re-evaluated and patient/surgeon requests outpatient pathway, patient is acceptable candidate for outpatient joint program from anesthesia standpoint pending surgeon's office assessment of pt motivation/support/completion of same day joint program preop requirements. Chart Review Chart Review: Pending: Refer to Additional Notes / Consult section and Patient seen in Pre Admission Testing Teaching & Discussion Pre-Anesthesia Teaching/Discussion Notes: Instructed NPO after midnight before surgery, except medications with 15 cc of water. Medication instructions provi ded according to the PAT guidelines. History Surgery Operation Date: 12/17/22 10:05 Proposed Procedures p Right Total Shoulder Arthroplasty Reverse - Isaias Damian Kee MD Height/Weight Height: 5 ft 2 in Weight: 128.3 kg Allergies Allergy/AdvReac Type Severity Reaction Status Date / Time No Known Allergies Allergy Verified 11/28/22 10:54 Medications Home Medications Medication Instructions Recorded Confirmed Last Taken Lactobacillus rhamnosus GG 10 1 cap PO QPM 11/14/21 11/28/22 08/20/22 billion cell capsule (Culturelle) acetaminophen 325 mg capsule 650 mg PO Q8H PRN Pain 11/14/21 11/28/22 08/20/22 (Tylenol) calcium carbonate 600 mg calcium 600 mg PO BID 11/14/21 11/28/22 08/20/22 (1,500 mg) tablet cetirizine 10 mg capsule (Zyrtec) 10 - 40 mg PO UD PRN environmental 11/14/21 11/28/22 08/20/22 allergies/hives cholecalciferol (vitamin D3) 25 25 mcg PO QPM 11/14/21 11/28/22 08/20/22 mcg (1,000 unit) capsule famotidine 20 mg tablet (Pepcid) 20 mg PO QPM 11/14/21 11/28/22 08/20/22 ibuprofen 200 mg tablet 200 mg PO UD PRN Pain 11/14/21 11/28/22 Unknown naproxen 250 mg tablet 250 mg PO UD PRN Pain 11/14/21 11/28/22 Unknown turmeric 400 mg capsule 400 mg PO QPM Daily 11/14/21 11/28/22 08/20/22 letrozole 2.5 mg tablet (Femara) 2.5 mg PO QPM 01/17/22 11/28/22 08/20/22 vitamin B complex 1 tab PO QPM 03/06/22 11/28/22 08/20/22 azelastine 137 mcg (0.1 %) nasal 1 spray intranasal DAILY PRN 05/28/22 11/28/22 08/20/22 spray aerosol Congestion #30 mL fluticasone propionate 50 1 spray intranasal DAILY PRN 05/28/22 11/28/22 08/20/22 mcg/actuation nasal Congestion #16 grams spray,suspension olopatadine 0.2 % eye drops 1 drp ophthalmic (eye) DAILY PRN 05/28/22 11/28/22 08/20/22 ALLERGIES #2.5 mL duloxetine 60 mg capsule,delayed 60 mg PO QPM #90 caps 11/08/22 11/28/22 Unknown release Past Medical History Medical History (Updated 12/05/22 @ 13:14 by Karen Ingram PA-C) Chronic idiopathic urticaria GERD (gastroesophageal reflux disease) controlled, stable per pt History of blood transfusion 40 yrs ago History of endometrial cancer (2012) Hysterectomy in 2011 - no chemo or RT Hx of breast cancer Biopsy on 09/27/21/right lumpectomy & 4 weeks radiation (last tx early jan 2022)-no current chemo or radiation-right arm restriction Limb alert care status right arm restriction Osteomyelitis of toe of left foot hx Scoliosis denies surgical intervention Patient denies h/o stroke, seizures, heart attack, heart failure, DM, HTN, or blood clots/DVTs. Exercise / Class Metabolic Activity II 4-5 Yardwork/Stairs/Walk up hill (denies chest discomfort or shortness of breath with 1 FOS) Past Family History Family History Grandmother (Maternal) Type 2 diabetes mellitus Grandmother (Paternal) Breast cancer Father , in his 70s Skin cancer Diabetes Bladder cancer Arthritis COPD (chronic obstructive pulmonary disease) Mother , 82yo Osteoarthritis Breast cancer Hypertension Family/Other Skin cancer Paternal uncle Bladder cancer Paternal uncle Breast cancer Paternal great aunt Cancer of kidney paternal cousin Daughter No problems noted. Son No problems noted. Denies family history of Ovarian cancer Prostate cancer Myocardial infarction Colorectal cancer Past Surgical History Surgical History (Updated 12/05/22 @ 13:16 by Karen Ingram PA-C) Dental root implant present Family history of reaction to anesthesia MOTHER AND DAUGHTER EXTREMELY SLOW TO WAKE UP. H/O dilation and curettage 2011. H/O excision of mass (04/04/22) Right Upper Extremity Excision of 8cm Soft Tissue Mass (Right) ( 8 cm) lipoma - Aubrey Parnell, DO History of adenoidectomy History of ankle surgery LEFT ANKLE RECONSTRUCTION History of cholecystectomy History of revision of total knee arthroplasty (06/17/18) Left History of tonsillectomy History of tooth extraction History of total abdominal hysterectomy and bilateral salpingo-oophorectomy History of total knee arthroplasty Right and Left, 3 wks apart 2006; revision sx lt knee Hx of ovarian cystectomy Hx of toe surgery toe nail removal and bx. Status post right breast lumpectomy With SLN biopsy on 10/22/21 Dr. Allen: right arm restriction Strabismus REPAIRED X 2 Past Anesthesia History No Hx of Anesthesia Complications and Other (see above) History of PONV No Hx of PONV and Hx of Motion Sickness Social History Smoking Status: Never smoker Do You Dip or Chew Tobacco: No Hx Alcohol Use: Yes alcohol intake frequency: holidays/special occasions only Hx Substance Use: No substance use type: does not use Review of Systems Patient denies chest pain, shortness of breath, dyspnea on exertion, snoring, witnessed apneas, fever, chills, cough, wheezing, or palpitations. Physical Exam Vital Signs Vitals BP 128/76 P 88 TEMP 98.3 SP02 98% on RA RESP 18 Physical Patient resting comfortably in chair in no acute distress, alert and oriented, responding appropriately throughout visit Full cervical extension range of motion without pain TMD 3.5 finger breadths Mallampati Score 3 Dentition: implant-left upper side and several caps/crowns, denies chipped or loose teeth, or bridges Lungs: normal respiratory effort. Good air movement, clear throughout to auscultation, no adventitious breath sounds Cardiac: regular rate and rhythm, no murmurs noted Carotid arteries: negative bruit bilat Lab Results Anesthesia Preop Results Results Anesthesia Widget: WBC 6.09 K/ul (4.8-10.8) 11/13/22 Hgb 12.8 g/dl (12.0-16.0) 11/13/22 Hct 37.6 % (37.0-47.0) 11/13/22 Plt 188 K/uL (130-400) 11/13/22 Na 140 mmol/L (136-145) 11/13/22 K 4.1 mmol/L (3.5-5.1) 11/13/22 Cl 106 mmol/L (98-107) 11/13/22 CO2 29 mmol/L (21-32) 11/13/22 BUN 20 mg/dl (6-23) 11/13/22 Creat 0.75 mg/dl (0.6-1.2) 11/13/22 Glucose Level 101 mg/dl (70-99(Fasting)) H 11/13/22 PT 10.9 Seconds (9.0-12.0) 12/05/22 PTT 30.8 Seconds (21.0-31.0) 12/05/22 INR 1.0 (0.9-1.1) 12/05/22 Urine Color Yellow 12/05/22 Urine Appearance Clear (Clear) 12/05/22 Urine pH 7.5 (4.5-7.5) 12/05/22 Urine Specific [place] 1.012 (1.000-1.030) 12/05/22 Urine Protein Negative (Negative) 12/05/22 Urine Glucose (UA) Negative (Negative) 12/05/22 Urine Ketones Negative (Negative) 12/05/22 Urine Blood Negative (Negative) 12/05/22 Urine Nitrite Negative (Negative) 12/05/22 Urine Bilirubin Negative (Negative) 12/05/22 Urine Urobilinogen Negative (Negative) 12/05/22 Urine Leukocyte Esterase Negative (Negative) 12/05/22 Blood Type O Positive 10/05/23 Antibody Screen NEGATIVE 12/05/22 Testing Electrocardiogram Date: 12/05/22 Sinus rhythm with 2nd degree AV block, rate 81 bpm Chest X-Ray Date: 03/14/22 No acute process Cervical Spine Date: 08/02/22 x-ray The cervical spine is visualized from C1 through the superior endplate of T1. There is no fracture. No subluxation. Severe disc space narrowing at C6-C7. Moderate disc space narrowing at C5-C6. Mild disc space narrowing throughout the remaining cervical spine. Eony-me-odzpqhcm facet degenerative changes throughout the cervical spine. This is similar to the prior study. No significant neural foraminal narrowing. The lung apices are clear. Prevertebral soft tissues and the atlantodens interval are intact. IMPRESSION: No fracture or subluxation within the cervical spine. Degenerative changes as described above. Other Testing Brain MRI 12/28/21 No intracranial abnormality is identified.
[~2023-01-07 08:23] MED LIST changes: +ACETAMINOPHEN 500 MG TAB PO SCH; +BUPIVACAINE 0.5 % 5 MG/1 ML PF 10ML VIAL ONE; -CEFAZOLIN 2000MG 2,000 MG/15 ML SYR IV SCH; -CEFAZOLIN 3000MG 65 ML IV SCH; +LIDOCAINE 2% 2 ML VIAL/AMP(20MG/ML) INFIL ONE; +LR 15ML/HR IV SCH; -LR 500ML BOLUS, THEN 15ML/HR IV SCH; +MIDAZOLAM HCL 1 MG/ML 2ML VIAL ONE; +ONDANSETRON INJ 2 MG/ML 2 ML VIAL ONE; +PROPOFOL IV EMULSION 10 MG/ML 20 ML VIAL IV ONE; +ROCURONIUM BROMIDE 10 MG/ML 5 ML VIAL IV ONE; -ROPIVACAINE 0.5% HCL/PF 150 MG, BUPIVACAINE 0.5% MPF 30 ML, EPINEPHrine 0.15 MG, Ketoro... INFIL SCH; +ROPIVACAINE 0.5% HCL/PF 150 MG, BUPIVACAINE 0.75% MPF 20 ML, EPINEPHrine 0.15 MG, Ketor... INFIL SCH; +ROPIVACAINE 0.5% HCL/PF 150 MG, BUPIVACAINE 0.75% MPF 20 ML, EPINEPHrine 30MG/30ML (OR ... INSTIL SCH; +Scopolamine 1 MG TDSY TD SCH; +Scopolamine CHECK PATCH PLACEMENT SCH; +TRANEXAMIC ACID 1,000 MG **IV Intra-op IV SCH; -VANCOMYCIN HCL 1,000 MG/270 ML BAG IV SCH; -VANCOMYCIN HCL 2,000 MG in SODIUM CHLORIDE 0.9% 500 ML IV SCH; +fentaNYL citrate PF 100 MCG/2 ML VIAL ONE
--- NOTE | 2023-01-07 09:38 | History & Physical Bridge Note ---
Date of Service January 07, 2023 History & Physical Bridge Note I have examined the patient, reviewed the History & Physical and in the interval since the performance of the History & Physical I have noted the following changes of clinical significance: no changes noted
[2023-01-07] MEDS ORDERED: LIDOCAINE 1%/EPINEPHRINE 1:100,000 20 ML VIAL ONE (10:21)
[2023-01-07] MEDS ORDERED: BUPIVACAINE 0.5 % 5 MG/1 ML MPF 30ML VIAL ONE (10:21)
--- NOTE | 2023-01-07 14:37 | Post Operative Brief Note ---
Immediate Post Op Note v1 Date of Surgery January 07, 2023 Pre & Post Diagnosis Operation Date: 01/07/23 10:00 Pre-Op Diagnosis: Right Shoulder Rotator Cuff Arthropathy, degenerative joint disease Post-Op Diagnosis: Right Shoulder Rotator Cuff Arthropathy, degenerative joint disease I identified the patient and participated in the time-out.: Yes Procedure Operation Date: 01/07/23 10:00 Actual Procedures p Right Reverse Total Shoulder Arthroplasty(Right) - Isaias Kee MD Surgeon Isaias Kee MD Presser Machine Shannon Hamilton PA-C (No fellow avail) Estimated Blood Loss 200 Findings Consistent with Post-Op Diagnosis Fluids 1700 cc Specimens Right shoulder contents Complications none
--- NOTE | 2023-01-07 14:38 | Operative Report ---
Post Operative Report Pre & Post Diagnosis Operation Date: 01/07/23 10:00 Pre-Op Diagnosis: Right Shoulder Rotator Cuff Arthropathy, degenerative joint disease Post-Op Diagnosis: Right Shoulder Rotator Cuff Arthropathy, degenerative joint disease I identified the patient and participated in the time-out.: Yes Procedure Operation Date: 01/07/23 10:00 Actual Procedures p Right Reverse Total Shoulder Arthroplasty(Right) - Isaias Kee MD Surgeon Isaias Kee MD Refinery Pipeline Operator Shannon Hamilton PA-C (No fellow avail) Estimated Blood Loss 200 Findings See Below Shoulder ROM Pre-op: FF 120 deg; Abd 120 deg w/ crepitus; ER 80 deg; IR 40 deg Massive retracted rotator cuff with acetabulization of the humeral head. Humeral head had loss of articular cartilage of humeral head and glenoid. LHB was torn and was within the groove, but no longer attached to the glenoid. Shoulder ROM Post-op: FF 155 deg; Abd 155 deg; ER 95 deg; IR 55 deg Fluids 1700 cc Specimens Right shoulder contents Anesthesia Type General Regional Complications none Indications Patient is a 67-year-old female who developed right shoulder rotator cuff arthropathy with pain and decreased mobility. I recommended that she undergo a right shoulder Reverse TSA. The patient understands the risks of the operation including bleeding, infection, re-operation, damage to nerves and arteries, continued shoulder pain, shoulder stiffness, infection, and/or loosening of the components which may require additional surgery. The patient also understands the risks of heart attack, stroke, pulmonary embolus, and . The patient wished to proceed and the consent form was signed. Description of Procedure IMPLANTS: Arthrex MGS 1) Humeral Stem 11 Univers Reverse [place] Stem, with size 33 +2 Right Offset Suture Cup at 135. 2) Humeral Liner 33, + 3 mm. 3) Glenoid Modular Baseplate 24 mm, 20 deg Full Augment, +2 lateralized & Central Post 10 x 25 mm. 4) Glenosphere 33/24 mm + 4 lateralized. 5) Glenoid Locking screw 5.5 x (16 & 40) mm. 6) Glenoid Non-Locking screw 4.5 x 36 mm. Shannon Hamilton PA-C is assisting with positioning, retracting, closure, placement of the sling, and transferring the patient due to fellow not available. PROCEDURE: The patient was taken to the Operating Room and placed in the beach-chair position after administration of an interscalene block and general anesthesia. 2 g of intravenous Ancef were administered. The right shoulder was then prepped and draped in the standard sterile fashion. Sequential compression devices were placed in the legs. The patient was identified and a multidisciplinary time-out identified the right shoulder as the correct shoulder and operative limb. First, the coracoid, acromion, clavicle, and planned deltopectoral incision were marked and then anesthetized with a 50:50 mixture of 1% lidocaine and 0.5% Marcaine with epinephrine. Sharp dissection was carried down to the delto pectoral interval. The cephalic vein was identified and protected laterally as was the deltoid. The deltopectoral interval was dissected to expose the clavipectoral fascia which was then incised. Blunt dissect was used to separate the deltoid from the humeral head and pseudo-capsule. A self-retaining shoulder retractor was placed beneath the conjoined tendon and deltoid muscle, exposing the subscapularis tendon. The superior 1cm of the Pec major was released. The biceps tendon was identified in its groove and had degenerated and was not attached to the glenoid, it was tenodesed to the Pec major tendon with #1 Vicryl. The bicipital groove was unroofed and the rotator interval was split to the base of the coracoid. The subscapularis was released. Next, the humeral head was dislocated by adducting, extending, and externally rotation and the capsulotomy was carried down all the way around to the posterior aspect of the humeral head, taking care to stay on bone. The humeral intramedullary entry point was entered posterior to the bicipital groove with a 2.4mm guide pin, followed by 6 mm drill, and then IM reamer. The resection guide was attached to the IM reamer and pinned to the humeral head with desired resection of 135. The IM reamer was removed and the humeral head was resected in the standard fashion. The resection protector was placed over the humeral surface. Our attention was drawn to the glenoid. The humerus was retracted and displaced posteriorly. The labrum was circumferentially removed as was the anterior capsule, which was carefully dissected free from the subscapularis tendon. The glenoid was exposed with 90 Deg retractor superiorly, Ruslan retractor anteriorly, and Batman retractor posteriorly. The glenoid was prepped with curettes to remove any remaining cartilage. Using the specific VIP patient specific glenoid aiming guide for a 24 mm baseplate was used to place the 2.8 mm guide wire. The glenoid surface was prepped for the baseplate with the glenoid reamer. The modular central post was prepped with cannulated 10 mm drill, then drill to depth of 25 mm. The baseplate with central post was placed flush to the glenoid. Using the superior posterior screw hole a non-locking screw was placed first followed by the inferior locking screws. The glenosphere was inserted onto the baseplate and locked into place in the standard fashion. The humerus was dislocated and humeral broaches 6 through 11 were sequentially placed in the humeral shaft until excellent fit. The A/P position of the broach was checked. The offset reamer guide was placed. The humeral cup reamer prepped the remainder of the humerus. The 11 stem was impacted into place with excellent purchase was achieved. The humeral trial liner 3 mm was placed. The shoulder was reduced with excellent fit and good stability of 1+ translation anteriorly and posteriorly. The shoulder ROM showed improved motion noted above. The definitive humeral liner was then placed. The Subscapularis was repaired by tying the sutures in the Suture Cup. The ROM and stability was unchanged. The pulsatile lavage was used to copiously irrigate the wound throughout the case. The deltopectoral interval was re-approximated with #1-Vicryl, the subcutaneous tissue was closed with 3-0 Vircyl, and the skin was closed with ZipLine and Shield. The wounds were dressed with sterile gauze, and Tegaderm. The patient was then transferred to the PACU in stable condition after application of a sling. POST-OP: The patient will be admitted to Telemetry for observation overnight, Anesthesia was concerned for possible block. Hospitalist service will be consulted. Patient will be seen by PT/OT prior to discharge. Pain medicine will be used as needed. The patient was placed in an sling. I attest to the content of the Intraoperative Record and any orders documented therein. Any exceptions are noted below.
[2023-01-07] MEDS ORDERED: bisacodyL 10 MG SUPP PR PRN (14:51)
[2023-01-07] MEDS ORDERED: ONDANSETRON INJ 2 MG/ML 2 ML VIAL IV PRN (14:51)
[2023-01-07] MEDS ORDERED: METOCLOPRAMIDE HCL INJ 5 MG/ML 2 ML VIAL IV PRN (14:51)
[2023-01-07] MEDS ORDERED: oxyCODONE HCL IR 5 MG TAB (IMMEDIATE RELEASE) PO PRN (14:51)
[2023-01-07] MEDS ORDERED: HYDROmorphone INJ 1 MG/ML SYRINGE IV PRN (14:51)
[2023-01-07] MEDS ORDERED: MAGNESIUM HYDROXIDE SUSP 30 ML UDC PO PRN (14:51)
[2023-01-07] MEDS ORDERED: diphenhydrAMINE Capsule 25 MG CAP PO PRN (14:51)
[2023-01-07] MEDS ORDERED: NALOXONE HCL 0.4 MG/1 ML VIAL/CARP IV PRN (14:51)
--- NOTE | 2023-01-07 15:07 | Operative Report ---
Post Operative Report Pre & Post Diagnosis Operation Date: 01/07/23 10:00 Pre-Op Diagnosis: Right Shoulder Rotator Cuff Arthropathy, degenerative joint disease Post-Op Diagnosis: Right Shoulder Rotator Cuff Arthropathy, degenerative joint disease I identified the patient and participated in the time-out.: Yes Procedure Operation Date: 01/07/23 10:00 Actual Procedures p Right Reverse Total Shoulder Arthroplasty(Right) - Isaias Kee MD Surgeon WIL Amin Physical Therapy Assistant Shannon Hamilton PA-C (No fellow avail) Estimated Blood Loss 200 Findings Consistent with Post-Op Diagnosis Specimens none Disposition Accompanied Patient To Recovery: No Description of Procedure I was present during the entire case. I assisted with transferring patient, positioning, draping, retracting, hemostasis, wound closer, dressing application, sling application and transferring back to liter.Patient left the OR in stable condition. Please refer to Dr. Kee's operative report for further details. I attest to the content of the Intraoperative Record and any orders documented therein. Any exceptions are noted below.
--- NOTE | 2023-01-07 15:22 | Electrocardiogram Report ---
Test Reason : Blood Pressure : / mmHG Vent. Rate : 117 BPM Atrial Rate : 078 BPM P-R Int : 000 ms QRS Dur : 106 ms QT Int : 336 ms P-R-T Axes : 000 -02 039 degrees QTc Int : 468 ms Probable Accelerated Junctional rhythm with occasional Premature ventricular complexes Nonspecific T wave abnormality Abnormal ECG When compared with ECG of 05-DEC-2022 13:43, Junctional rhythm has replaced Sinus rhythm Nonspecific T wave abnormality now evident in Lateral leads Confirmed by Rafa Moss ([id number]) on 01/07/2023 3:22:29 PM Referred By: Isaias Kee Confirmed By:Rafa Moss
[2023-01-07] MEDS ORDERED: ceFAZolin 3,000 MG in DEXTROSE 5% 50 ML IV ONE (15:23)
[2023-01-07] MEDS ORDERED: Scopolamine CHECK PATCH PLACEMENT SCH (16:00)
--- NOTE | 2023-01-07 16:04 | XRay Report ---
XR shoulder RT min 2V routine CLINICAL HISTORY: s/p right reverse total shoulder arthroplasty. Postop. COMPARISON STUDY: Right shoulder 11/18/2022. FINDINGS: Status post reverse right total shoulder arthroplasty. The hardware appears intact. No acut e fracture or dislocation within the right shoulder. IMPRESSION: Status post reverse right total shoulder arthroplasty. No evidence for hardware complica tion. ACT 112: Negative or not required by law. Electronically signed by: Srinath Doran M.D. 01/07/2023 4:03 PM
[2023-01-07] MEDS ORDERED: INFLUENZA VACCINE HIGH-DOSE (HD-IIV4) PF 65+ 0.7mL SYR IM ONE (16:21)
--- NOTE | 2023-01-07 16:22 | Anesthesiology Progress Note ---
Date of Service January 07, 2023 Anesthesia Post Procedure Vital Signs Vital Signs: Temp Pulse Pulse Resp BP Pulse Ox O2 Del Method 01/07/23 16:12 36.4 C L 98 H 20 122/76 96 Room Air 01/07/23 15:50 103 H 24 107/73 95 Room Air 01/07/23 15:35 36.6 C 105 H 22 131/68 96 Room Air 01/07/23 15:25 111 H 16 124/57 L 100 Oxymask 01/07/23 15:15 114 H 24 123/83 100 Oxymask 01/07/23 15:05 115 H 22 111/79 98 Oxymask 01/07/23 14:55 36.5 C 108 H 18 135/93 97 Oxymask 01/07/23 09:02 36.9 C 110 H 20 147/101 H 98 Room Air O2 Flow Rate 01/07/23 16:12 01/07/23 15:50 01/07/23 15:35 01/07/23 15:25 3 01/07/23 15:15 4 01/07/23 15:05 4 01/07/23 14:55 6 01/07/23 09:02 Transfer of Care Handoff Completed per policy Notes Mental Status: alert / awake / arousable Patient Amnestic to Procedure: Yes Nausea / Vomiting: adequately controlled Pain: adequately controlled Airway Patency, RR, SpO2: stable & adequate BP & HR: stable & adequate Hydration State: stable & adequate Anesthetic Complications: no major complications apparent and Pt Satisfied with anesthetic care
[2023-01-07] MEDS: ASCORBIC ACID 500 MG TAB PO SCH (16:51)
[2023-01-07] MEDS: ACETAMINOPHEN 500 MG TAB PO SCH (16:51)
[2023-01-07] MEDS: SODIUM CHLORIDE 0.9% 1,000 ML IV SCH (16:51)
[2023-01-07] MEDS: FERROUS GLUCONATE 324 MG TAB PO SCH (16:51)
--- NOTE | 2023-01-07 16:53 | Hospitalist Consultation ---
Date of Consultation January 07, 2023 Assessment & Plan (1) Status post reverse total arthroplasty of right shoulder: With Dr. Isaias Kee on 01/07/23 Perioperative antibiotics, pain control, DVT PPx, and IV fluids per the primary team Patient denies R shoulder pain following surgery Postop EKG showed accelerated junctional rhythm with occasional PVCs at 117 bpm Clinically, patient denies CP/SOB, and heart rate had returned to the 80-90bpm range during exam Agree with continuous telemetry monitoring on MedSurg/Tele Agree with a.m. CBC and BMP tomorrow, we will follow (2) Chronic idiopathic urticaria: Continue famotidine Ceitirizine PRN (3) History of endometrial cancer: (4) Hx of breast cancer: Continue letrozole (5) Accelerated junctional rhythm: Plan Agree with current medical decision making: MedSurg telemetry Full code Regular diet VTE PPx: SCDs and TEDs; starting Eliquis tomorrow (presumedly for VTE PPx; per primary team) Thank you for allowing us to participate in the care of this patient, please reach out with any questions or concerns. Supervising Physician Co-Signing Physician Notes I personally saw and examined the patient. I verified all pérez points and agree with Srinath Whitfield PA-C with the following exceptions and/or additions: 67 year old female POD# 0 Accelerated junction rhythm on post operative EKG. She denies any chest pain, palpitations or shortness of breath and feels well at this time. O/E HS RRR, no murmurs, Chest CTAB, Abdo SNT, getting her feeling back in her right hand but thumb remains numb at this time. A/P VTE / Pain / Bowel management per primary orthopedic team Accelerated junctional rhythm - repeat EKG as rate appears in 80s. Suspect secondary to anesthesia. Monitor on telemetry. History of Present Illness Reason for Consultation: Medical management Requesting Physician: Isaais Kee MD Attending Physician: Isaias Kee MD History of Present Illness Mary is a 67yo female with PMH of GERD, endometrial cancer, and right breast cancer. She is also a former [employer] nurse. She presented for a right reverse total shoulder arthroplasty with Dr. Isaias Kee on 01/07/23 at 1000. Per operative report, EBL was listed as 1700 cc, anesthesia was listed as general regional, and there were no intraoperative complications reported. Per review of patient's vitals, patient has been mildly tachycardic in the 110bpm range; otherwise vital signs are stable. Patient reports that she did not take any of her regular medications this morning. No at home O2 use. She denies recent NSAID use leading up to the surgery. She further denies h/o blood thinner use. She reports no right shoulder pain since waking up from the surgery. She was given Tylenol 1000 mg after the surgery, but said it was noncontributory. She does endorse mild numbness and tingling in the RUE. ROS: Patient endorses sore throat, productive cough (clear sputum production), and numbness and tingling extending from the right shoulder down into the right hand. Patient denies fever, chills, sweating, dizziness, lightheadedness, CP, pleuritic CP, abdominal pain, nausea, vomiting, urinary s/s, burning with urination, or numbness/tingling/pain in the legs. Patient denies PMHx of cardiac conditions, TN, or DVT/PEs Allergies Allergy/AdvReac Type Severity Reaction Status Date / Time No Known Allergies Allergy Verified 01/07/23 08:51 Home Medications Medication Instructions Recorded Confirmed Type Lactobacillus rhamnosus GG 10 1 cap PO QPM 11/14/21 01/07/23 History billion cell capsule (Culturelle) acetaminophen 325 mg capsule 650 mg PO Q8H PRN Pain 11/14/21 11/28/22 History (Tylenol) calcium carbonate 600 mg calcium 600 mg PO BID 11/14/21 11/28/22 History (1,500 mg) tablet cetirizine 10 mg capsule (Zyrtec) 10 - 40 mg PO UD PRN environmental 11/14/21 11/28/22 History allergies/hives cholecalciferol (vitamin D3) 25 25 mcg PO QPM 11/14/21 11/28/22 History mcg (1,000 unit) capsule famotidine 20 mg tablet (Pepcid) 20 mg PO QPM 11/14/21 11/28/22 History ibuprofen 200 mg tablet 200 mg PO UD PRN Pain 11/14/21 01/07/23 History naproxen 250 mg tablet 250 mg PO UD PRN Pain 11/14/21 11/28/22 History turmeric 400 mg capsule 400 mg PO QPM Daily 11/14/21 11/28/22 History letrozole 2.5 mg tablet (Femara) 2.5 mg PO QPM 01/17/22 11/28/22 History vitamin B complex 1 tab PO QPM 03/06/22 11/28/22 History azelastine 137 mcg (0.1 %) nasal 1 spray intranasal DAILY PRN 05/28/22 11/28/22 Rx spray aerosol Congestion #30 mL fluticasone propionate 50 1 spray intranasal DAILY PRN 05/28/22 11/28/22 Rx mcg/actuation nasal Congestion #16 grams spray,suspension olopatadine 0.2 % eye drops 1 drp ophthalmic (eye) DAILY PRN 05/28/22 11/28/22 Rx ALLERGIES #2.5 mL duloxetine 60 mg capsule,delayed 60 mg PO QPM #90 caps 11/08/22 11/28/22 Rx release Patient History Medical History (Updated 01/08/23 @ 08:38 by Payam Vogel MD) History of blood transfusion 40 yrs ago Hx of breast cancer Biopsy on 09/27/21/right lumpectomy & 4 weeks radiation (last tx early jan 2022)-no current chemo or radiation-right arm restriction Osteomyelitis of toe of left foot hx Limb alert care status right arm restriction Chronic idiopathic urticaria History of endometrial cancer (2012) Hysterectomy in 2011 - no chemo or RT Scoliosis denies surgical intervention GERD (gastroesophageal reflux disease) controlled, stable per pt Surgical History (Updated 01/07/23 @ 16:50 by Srinath Whitfield PA-C) Hx of ovarian cystectomy Hx of toe surgery toe nail removal and bx. H/O excision of mass (04/04/22) Right Upper Extremity Excision of 8cm Soft Tissue Mass (Right) ( 8 cm) lipoma - Aubrey Parnell, DO Status post right breast lumpectomy With SLN biopsy on 10/22/21 Dr. Allen: right arm restriction Dental root implant present History of revision of total knee arthroplasty (06/17/18) Left H/O dilation and curettage 2011. History of total knee arthroplasty Right and Left, 3 wks apart 2006; revision sx lt knee Family history of reaction to anesthesia MOTHER AND DAUGHTER EXTREMELY SLOW TO WAKE UP. History of total abdominal hysterectomy and bilateral salpingo-oophorectomy History of ankle surgery LEFT ANKLE RECONSTRUCTION History of cholecystectomy History of tooth extraction History of tonsillectomy History of adenoidectomy Strabismus REPAIRED X 2 Family History Grandmother (Maternal) Type 2 diabetes mellitus Grandmother (Paternal) Breast cancer Father , in his 70s Skin cancer Diabetes Bladder cancer Arthritis COPD (chronic obstructive pulmonary disease) Mother , 82yo Osteoarthritis Breast cancer Hypertension Family/Other Skin cancer Paternal uncle Bladder cancer Paternal uncle Breast cancer Paternal great aunt Cancer of kidney paternal cousin Daughter No problems noted. Son No problems noted. Denies family history of Ovarian cancer Prostate cancer Myocardial infarction Colorectal cancer Social History Smoking Status: Never smoker Second Hand Exposure: Yes (hx in the workplace); Do You Dip or Chew Tobacco: No; Tobacco Cessation Education Requested by Patient: No Hx Alcohol Use: No Hx Substance Use: No Preferred Language: Tajik Communication Ability: Effective Visual Impairment: No Limitations Hearing Ability: Normal Sleeve Machine Tender Required: No Beliefs That Will Affect Care: None marital status: Current Living Situation: Alone Current Living Situation Comment: [facility] current occupational status: retired current occupation: retired RN How many Children do You have: 2 Other Information That Helps Us Care for You: No Feels Safe at Home: Yes Safety Concerns: Feels Safe At This Time Childhood Exposure to Second-Hand Smoke: Yes Diet: regular caffeine: Yes (2 cups/day) during the past year weight has: decreased > 10 lbs Dental Care, Regularly: Yes Physical Activity Frequency: Daily Physical Activity Frequency Comment: walking dog; housework Seatbelt Use: always Sunscreen Use: Yes Assistive Devices: Glasses Review of Systems Review of Systems: See HPI above Physical Exam Physical Exam: General: no acute distress; non-toxic appearing; well-nourished; cooperative; 95% SPO2 on RA; heart rate 80-100bpm HEENT: normocephalic, atraumatic; no scleral icterus; PERRLA w/ EOMs intact; moist mucus membrane; vision and hearing grossly intact Neck: supple; no lymphadenopathy; trachea midline Skin: warm, dry without signs of tenting; no cyanosis; no rashes, brusing, lesions, or erythema noted RUE: Right shoulder is NTP, nonerythematous, and not warm to touch; incision site dressing is clean without signs of infection, drainage, or erythema; patient is unable to move shoulder in the sling, but demonstrates ability to bend right wrist and wiggle fingers CV: chest wall NTP; RRR; S1/S2 normal; no murmurs/rubs/gallops; pulses intact and symmetric at radial, DP, and PT Lungs: no acute respiratory distress; symmetrical chest wall expansion; clear breath sounds across all lung harris w/o adventitious sounds; no wheezing ABD: Soft, NTP; BS present; no rebound/guarding; no ascites; no distention MSK: no tics or fasciculations; no edema noted in the LEs b/l; +5/5 director process engineering strength b/l Neuro: A&Ox3; normal mood and affect; fluent speech; no focal deficits; diminished sensation in the RUE extending from the fingers to the right lateral neck Results & Data Results & Data Vital Signs (Past 12 Hours) Vital Signs Temp Pulse Pulse Pulse Resp BP Pulse Ox 01/07/23 16:30 105 H 01/07/23 16:12 36.4 C L 98 H 20 122/76 96 01/07/23 15:50 103 H 24 107/73 95 01/07/23 15:35 36.6 C 105 H 22 131/68 96 01/07/23 15:25 111 H 16 124/57 L 100 01/07/23 15:15 114 H 24 123/83 100 01/07/23 15:05 115 H 22 111/79 98 01/07/23 14:55 36.5 C 108 H 18 135/93 97 01/07/23 09:02 36.9 C 110 H 20 147/101 H 98 O2 Del Method O2 Flow Rate 01/07/23 16:30 01/07/23 16:12 Room Air 01/07/23 15:50 Room Air 01/07/23 15:35 Room Air 01/07/23 15:25 Oxymask 3 01/07/23 15:15 Oxymask 4 01/07/23 15:05 Oxymask 4 01/07/23 14:55 Oxymask 6 01/07/23 09:02 Room Air Diagnostic Findings Shoulder X-Ray 01/07/23 14:56 XR shoulder RT min 2V routine CLINICAL HISTORY: s/p right reverse total shoulder arthroplasty. Postop. COMPARISON STUDY: Right shoulder 11/18/2022. FINDINGS: Status post reverse right total shoulder arthroplasty. The hardware appears intact. No acute fracture or dislocation within the right shoulder. IMPRESSION: Status post reverse right total shoulder arthroplasty. No evidence for hardware complication. ACT 112: Negative or not required by law. Electronically signed by: Srinath Doran M.D. 01/07/2023 4:03 PM PG Care Time/CCT Total # of Minutes Spent Total Time Spent with Patient: Total time spent is greater than 50% in coordination of care (as documented) at patient's floor/unit and/or counseling patient: Coding [place] [address] IN/OBS CONSULT LVL 3,45M Patient Type Established Medical Decision Making Low Complexity Diagnoses Status post reverse total arthroplasty of right shoulder Z96.611 Chronic idiopathic urticaria L50.1 History of endometrial cancer Z85.42 Hx of breast cancer Z85.3 Accelerated junctional rhythm I49.8
--- NOTE | 2023-01-07 17:42 | Hospitalist Progress Note ---
Date of Service January 07, 2023 Assessment & Plan (1) Status post reverse total arthroplasty of right shoulder: Plan: With Dr. Isaias Kee on 01/07/23 Perioperative antibiotics, pain control, DVT PPx, and IV fluids per the primary team Patient denies R shoulder pain following surgery Postop EKG showed accelerated junctional rhythm with occasional PVCs at 117 bpm Clinically, patient denies CP/SOB, and heart rate during exam and return to the 80-90bpm range Agree with continuous telemetry monitoring on MedSurg/Tele Agree with a.m. CBC and BMP tomorrow, we will follow (2) GERD (gastroesophageal reflux disease): Plan: Continue famotidine (3) Hx of breast cancer: Plan: Continue letrozole (4) History of endometrial cancer: Plan Agree with current medical decision making: MedSurg telemetry Full code Regular diet VTE PPx: SCDs and TEDs w/ Eliquis starting tomorrow Thank you for allowing us to participate in the care of this patient, please reach out with any questions or concerns. Admission and Anticipated Discharge Date Admission Date: January 07, 2023 Review of Systems Review of Systems: See HPI above Physical Exam Physical Exam: General: no acute distress; non-toxic appearing; well-nourished; cooperative; 95% SPO2 on RA; heart rate 80-100bpm HEENT: normocephalic, atraumatic; no scleral icterus; PERRLA w/ EOMs intact; moist mucus membrane; vision and hearing grossly intact Neck: supple; no lymphadenopathy; trachea midline Skin: warm, dry without signs of tenting; no cyanosis; no rashes, brusing, lesions, or erythema noted RUE: Right shoulder is NTP, nonerythematous, and not warm to touch; incision site dressing is clean without signs of infection, drainage, or erythema; patient is unable to move shoulder in the sling, but demonstrates ability to bend right wrist and wiggle fingers CV: chest wall NTP; RRR; S1/S2 normal; no murmurs/rubs/gallops; pulses intact and symmetric at radial, DP, and PT Lungs: no acute respiratory distress; symmetrical chest wall expansion; clear breath sounds across all lung harris w/o adventitious sounds; no wheezing ABD: Soft, NTP; BS present; no rebound/guarding; no ascites; no distention MSK: no tics or fasciculations; no edema noted in the LEs b/l; +5/5 carroter strength b/l Neuro: A&Ox3; normal mood and affect; fluent speech; no focal deficits; diminished sensation in the RUE extending from the fingers to the right lateral neck Results & Data Results & Data Vital Signs (Past 12 Hours) Vital Signs Temp Pulse Pulse Pulse Resp BP Pulse Ox 01/07/23 16:40 36.3 C L 84 18 106/70 95 01/07/23 16:30 105 H 01/07/23 16:12 36.4 C L 98 H 20 122/76 96 01/07/23 15:50 103 H 24 107/73 95 01/07/23 15:35 36.6 C 105 H 22 131/68 96 01/07/23 15:25 111 H 16 124/57 L 100 01/07/23 15:15 114 H 24 123/83 100 01/07/23 15:05 115 H 22 111/79 98 01/07/23 14:55 36.5 C 108 H 18 135/93 97 01/07/23 09:02 36.9 C 110 H 20 147/101 H 98 O2 Del Method O2 Flow Rate 01/07/23 16:40 Room Air 01/07/23 16:30 01/07/23 16:12 Room Air 01/07/23 15:50 Room Air 01/07/23 15:35 Room Air 01/07/23 15:25 Oxymask 3 01/07/23 15:15 Oxymask 4 01/07/23 15:05 Oxymask 4 01/07/23 14:55 Oxymask 6 01/07/23 09:02 Room Air PG Care Time/CCT Total # of Minutes Spent Total Time Spent with Patient: Total time spent is greater than 50% in coordination of care (as documented) at patient's floor/unit and/or counseling patient: Coding Diagnoses Status post reverse total arthroplasty of right shoulder Z96.611 GERD (gastroesophageal reflux disease) K21.9 Hx of breast cancer Z85.3 History of endometrial cancer Z85.42
[2023-01-07] MEDS ORDERED: SENNA 8.6 MG TAB PO SCH (21:00)
[2023-01-07] MEDS ORDERED: LETROZOLE 2.5 MG TAB PO SCH (21:00)
[2023-01-07] MEDS ORDERED: CHOLECALCIFEROL 1,000 UNITS 25 MCG TAB PO SCH (21:00)
[2023-01-07] MEDS ORDERED: FAMOTIDINE 20 MG TAB PO SCH (21:00)
[2023-01-07] MEDS ORDERED: DULoxetine HCL 60 MG CAP PO SCH (21:00)
[2023-01-07] MEDS ORDERED: ADVANCED PROBIOTIC 1250 MG CAPSULE PO SCH (21:00)
[2023-01-07] MEDS ORDERED: VITAMIN B COMPLEX TAB PO SCH (21:00)
[2023-01-07] MEDS: CALCIUM CARBONATE 1250MG TAB PO SCH (21:27)
[2023-01-07] MEDS: ceFAZolin 2000MG 2,000 MG/15 ML SYR IV SCH (21:28)
[2023-01-07] MEDS: DOCUSATE SODIUM 100 MG CAP PO SCH (21:51)
[2023-01-08] MEDS: ACETAMINOPHEN 500 MG TAB PO SCH ×2 (00:13→08:50)
[2023-01-08] MEDS: SODIUM CHLORIDE 0.9% 1,000 ML IV SCH (03:19)
[2023-01-08] MEDS: traMADol HCL 50 MG TABLET PO PRN ×2 (05:46→13:14)
[2023-01-08 05:58] LABS: Hematocrit (blood only) 32.9 % (37.0-47.0); Mean Corpuscular Hemoglobin 30.8 pg (25.0-34.0); Mean Corpuscular Hgb Conc 33.4 g/dL (32.0-36.0); Mean Corpuscular Volume 92.2 fL (80.0-100.0); Mean Platelet Volume 9.3 fL (9.4-12.4); Platelet Count 134 K/uL (130-400); RDW Coefficient of Variation 12.9 % (11.5-14.5); RDW Standard Deviation 43.5 fL (36.4-46.3); Red Blood Count 3.57 M/uL (4.20-5.40); White Blood Count 6.71 K/ul (4.8-10.8)
[2023-01-08] MEDS ORDERED: APIXABAN 2.5 MG TAB PO SCH (06:00)
[2023-01-08] MEDS: ceFAZolin 2000MG 2,000 MG/15 ML SYR IV SCH (06:23)
[2023-01-08 06:43] LABS: Calcium 8.4 mg/dl (8.6-10.3); Potassium 4.2 mmol/L (3.5-5.1)
[2023-01-08 06:49] LABS: BUN Creatinine Ratio 19.5 (10-20); Creatinine Clr Calc Pharmacy 89.8 ml/min; Est GFR (African American) 91.3 ml/min; Est GFR (Non-African American) 78.8 ml/min
[2023-01-08] MEDS: FERROUS GLUCONATE 324 MG TAB PO SCH (08:49)
[2023-01-08] MEDS: CALCIUM CARBONATE 1250MG TAB PO SCH (08:49)
[2023-01-08] MEDS: DOCUSATE SODIUM 100 MG CAP PO SCH (08:49)
[2023-01-08] MEDS: ASCORBIC ACID 500 MG TAB PO SCH (08:50)
[2023-01-08] MEDS ORDERED: MULTIVITAMIN TAB PO SCH (09:00)
--- NOTE | 2023-01-08 10:08 | Orthopedic Progress Note ---
Date of Service January 08, 2023 Assessment & Plan (1) Status post reverse total arthroplasty of right shoulder: Plan: POD 1 - s/p reverse total arthroplasty of right shoulder with Dr. Kee Continue regular diet Continue home medications Currently on med/surg telemetry PT/OT Pain medication as prescribed Eliquis, teds and AV impulse boots while in hospital. OOB as tolerated Sling right arm at all times. Keep post op dressing in place. D/C planning with case management. Plan for home with HH when medically stable. Patient would like to home today. Appreciate medicine input, planning on repeating EKG today. I, Dr. Kee, saw and examined the patient and discussed the management with my PA. I reviewed my PAs note and agree with the documented findings and the plan of care I developed. (2) Accelerated junctional rhythm: Plan: Continue telemetry as per hospitalist service Plan for discharge home with HH when medically stable. Admission and Anticipated Discharge Date Admission Date: January 07, 2023 Subjective Patient resting in chair. She would like to go home today. She states that she's been walking "loops in the [place]" with PT and currently working with OT to get dressed. She denies chest pain, shortness of breath, lightheadedness, dizziness and feels well. She states yesterday before coming in for surgery she "walked her dog 2 miles". She is tolerating a regular diet. Pain is well controlled with oral pain medication. She states the block has worn off. Physical Exam Musculoskeletal: Right shoulder dressings clean, dry and intact, with no visible bloody drainage. She has full ROM of right elbow, forearm, fingers and wrist. Distal pulses are 1+. Strength of right hand and wrist is 5/5. Cap refill is brisk. Chronic degenerative changes in hand joints. No distal edema. Results & Data Vital Signs (Past 12 Hours) Vital Signs Temp Pulse Pulse Resp BP Pulse Ox O2 Del Method 01/08/23 07:45 37.6 C H 88 18 144/73 H 90 Room Air 01/08/23 06:00 94 H 01/08/23 03:19 37.9 C H 107 H 18 124/80 91 Room Air 01/07/23 23:04 36.6 C 87 18 131/73 91 Room Air Laboratory Results 01/08/23 Range/Units 05:46 WBC 6.71 (4.8-10.8) K/ul RBC 3.57 L (4.20-5.40) M/uL Hgb 11.0 L (12.0-16.0) g/dl Hct 32.9 L (37.0-47.0) % MCV 92.2 (80.0-100.0) fL MCH 30.8 (25.0-34.0) pg MCHC 33.4 (32.0-36.0) g/dL RDW Std Deviation 43.5 (36.4-46.3) fL RDW Coeff of Pal 12.9 (11.5-14.5) % Plt Count 134 (130-400) K/uL MPV 9.3 L (9.4-12.4) fL Sodium 137 (136-145) mmol/L Potassium 4.2 (3.5-5.1) mmol/L Chloride 106 (98-107) mmol/L Carbon Dioxide 27 (21-32) mmol/L Anion Gap 4 (3-11) BUN 15 (6-23) mg/dl Creatinine 0.77 (0.6-1.2) mg/dl Est Cr Clr Drug Dosing 89.8 ml/min Est GFR ( Amer) 91.3 ml/min Est GFR (Non-Af Amer) 78.8 ml/min BUN/Creatinine Ratio 19.5 (10-20) Glucose 112 H (70-99(Fasting)) mg/dl Calcium 8.4 L (8.6-10.3) mg/dl Magnesium 1.8 (1.7-2.4) mg/dl Diagnostic Findings Radiographs: 3 views right shoulder show evidence of recent right Reverse TSA without complications.
[2023-01-08 11:22] VITALS: BP 101/68; PULSE 94; RESP 20; TEMP 99.9; O2SAT 93
--- NOTE | 2023-01-08 12:06 | Hospitalist Progress Note ---
Date of Service January 08, 2023 Assessment & Plan (1) Status post reverse total arthroplasty of right shoulder: Plan: POD #1 s/p R total shoulder replacement by Dr. Isaias Kee - [facility] Doing well from orthopedic standpoint H/H with only a mild drop overnight BMP stable DVT proph - Eliquis 2.5mg BID Defer pain management to primary ortho team (2) Low grade fever: Plan: temps ranging from 36.3 to as high as 37.9 post-operatively she denies any infectious symptoms her CBC is stable and without leukocytosis she has no symptoms of VTE suspect low-grade temps overnight are due to post-operative inflammatory response to her surgery via [place] communication I discussed the low-grade temps with the primary orthopedic team I also discussed with the patient these low-grade fevers she plans to monitor herself carefully for any infectious symptoms she confirms she has a thermometer and will monitor for any temp elevations I asked her to call Dr Kee's office right away if she has spikes >38 C typically with post-op inflammatory temperatures such as these they typically resolve within a day or two in the event atelectasis is contributing will have staff educate her on inc entive spirometry use and send her home with such (3) Accelerated junctional rhythm: Plan: Yesterday's post-op EKG does appear to show an accelerated junctional rhythm. She had no cardiopulmonary symptoms at that time by report. Overnight on tele she was either NSR or sinus tach with frequency ectopy. The computer on this AM's EKG is saying "atrial fibrillation" but this is not a.fib. She continues to have no cardiopulmonary symptoms and feels well today. The low-grade fevers/temps are the likely cause of the mild tachycardia. (4) Chronic idiopathic urticaria: Plan: Continue famotidine Zyrtec PRN (5) History of endometrial cancer: Plan: noted (6) Hx of breast cancer: Plan: Continue letrozole (7) DVT prophylaxis: Plan: agree with Eliquis 2.5mg BID Plan plan of care discussed via [place] communication with Dr Kee from the primary orthopedic team EKGs reviewed with on-call cardiology today Admission and Anticipated Discharge Date Admission Date: January 07, 2023 Subjective patient sitting in chair by the window she reports feeling well we discussed the low-grade temperatures overnight (mid to upper 37's) - she did not notice any fever/feeling warm, and no rigors/chills ate good breakfast has moved her bowels denies headache, URI symptoms, cough, congestion, dyspnea, MANUEL, nausea, emesis, diarrhea or any other infectious symptoms she is anxious to return home only complain is that of R shoulder pain - mild this am 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[employer] [facility] tele strips reviewed from overnight - NSR, sinus tach at times, and PACs, PVCs; no a.fib or other dysrhythmia EKG this AM - I [place] this [place] [facility] [place]R/sinus tach, rate about 100, with PACs Review of Systems Review of Systems: cv - no orthopnea, no PND, no chest pain pulm - no dyspnea GI - passing flatus and bowel movement - no dysuria neuro - no dizziness or lightheadedness Physical Exam Physical Exam: gen - obese, NAD, looks well mouth - MMM neck - no JVD musculo - right shoulder/arm in sling; dressing intact over the shoulder region heart - irregular, s1 s2, rate in the 90s; no murmur lungs - CTA b/l, mildly decreased BS bases abd - soft NT ND BS+ ext - no edema, pulses 2+ b/l in the feet psych - a/o x 3 Results & Data Results & Data Vital Signs (Past 12 Hours) Vital Signs Temp Pulse Pulse Resp BP Pulse Ox O2 Del Method 01/08/23 11:19 37.7 C H 94 H 20 101/68 93 Room Air 01/08/23 10:04 Room Air 01/08/23 07:45 37.6 C H 88 18 144/73 H 90 Room Air 01/08/23 06:00 94 H 01/08/23 03:19 37.9 C H 107 H 18 124/80 91 Room Air Laboratory Results Laboratory Results 01/08/23 05:46 WBC 6.71 RBC 3.57 L Hgb 11.0 L Hct 32.9 L MCV 92.2 MCH 30.8 MCHC 33.4 RDW Std Deviation 43.5 RDW Coeff of Pal 12.9 Plt Count 134 MPV 9.3 L Sodium 137 Potassium 4.2 Chloride 106 Carbon Dioxide 27 Anion Gap 4 BUN 15 Creatinine 0.77 Est Cr Clr Drug Dosing 89.8 Est GFR ( Amer) 91.3 Est GFR (Non-Af Amer) 78.8 BUN/Creatinine Ratio 19.5 Glucose 112 H Calcium 8.4 L Magnesium 1.8 PG Care Time/CCT Total # of Minutes Spent Total Time Spent with Patient: Total time spent is greater than 50% in coordination of care (as documented) at patient's floor/unit and/or counseling patient: Coding Level of Care Code 02655 SUB INP/OBS CARE 3/50MIN Diagnoses Status post reverse total arthroplasty of right shoulder Z96.611 Low grade fever R50.9 Accelerated junctional rhythm I49.8 Chronic idiopathic urticaria L50.1 History of endometrial cancer Z85.42 Hx of breast cancer Z85.3 DVT prophylaxis Z29.9
--- NOTE | 2023-01-08 12:48 | Discharge Summary ---
Date of Service January 08, 2023 Discharge Data Consultations 01/07/23 14:56 Consult Hospitalist Routine Procedures Performed Operation Date: 01/07/23 10:00 Actual Procedures p Right Reverse Total Shoulder Arthroplasty(Right) - Isaias Kee MD Hospital Course (1) Status post reverse total arthroplasty of right shoulder: Patient was kept in observation at [facility] after undergoing elective reverse total arthroplasty of her right shoulder with Dr. Kee on January 07, 2023. Her surgery was performed with general anesthesia and a peripheral nerve block. She tolerated the procedure well but did develop an accelerated heart rhythm, possible heart block during surgery. She was stable in recovery but was transferred to the [facility] telemetry floor for continuous telemetry. Her home medications were continued. She was given a sling for her right arm. She was started on Eliquis on postoperative day 1 which will be continued for 3 weeks after her procedure due to her history of cancer for prevention of blood clots. She was given IV Dilaudid, oxycodone, tramadol, Tylenol for postoperative pain control. Her pain was well controlled with oral oxycodone. She did not develop any postoperative nausea, vomiting, lightheadedness, dizziness, chest pain or shortness of breath. She did have a low-grade temperature the evening of surgery and the following day with the highest being 37.9. This was thought to be from atelectasis and not postoperative infection. She was seen and evaluated on postoperative day 1 by physical therapy and Occupational Therapy and did well out of bed. She was able to ambulate in the hallways. exercise manager was involved for arrangements for home health. Pain medication prescription was sent to her pharmacy. Postop dressings were left in place and home nursing will change in a few days. Discharge instructions were reviewed. She was discharged to her home in stable condition with her on January 08, 2023. (2) Accelerated junctional rhythm: She was thought to have a heart block during surgery. She was placed on telemetry after her procedure and was found to have an accelerated junctional rhythm. On postoperative day 1 an EKG was performed she was found to have sinus rhythm with sinus tachycardia with PACs and PVCs. She was deemed safe for discharge from the hospitalist service on January 08, 2023 with close follow-up in 5 to 7 days from her family physician. Supervising Physician Co-Signing Physician Notes I personally saw and examined the patient. I verified all pérez points and agree with Srinath Whitfield PA-C with the following exceptions and/or additions: 67 year old female POD# 0 Accelerated junction rhythm on post operative EKG. She denies any chest pain, palpitations or shortness of breath and feels well at this time. O/E HS RRR, no murmurs, Chest CTAB, Abdo SNT, getting her feeling back in her right hand but thumb remains numb at this time. A/P VTE / Pain / Bowel management per primary orthopedic team Accelerated junctional rhythm - repeat EKG as rate appears in 80s. Suspect secondary to anesthesia. Monitor on telemetry.
--- NOTE | 2023-01-08 13:26 | Orthopedic Progress Note ---
Date of Service January 08, 2023 Assessment & Plan (1) Status post reverse total arthroplasty of right shoulder: Plan: Patient will be discharged home with home health services. She was advised on continuing with discharge plan as per discharge instructions. She will continue with the sling may remove the neck piece while sitting in chair as well as in bed. Sling can be removed for therapy. She was advised keeping the dressing in place. She can get area wet however I do not recommend submerging or direct water over it. Nursing can reinforce dressing if needed. If any concerns to contact the office. She will continue with Eliquis twice a day x3 weeks for DVT prophylaxis. She will continue with her pain medication as prescribed. She was advised as well as her son if any questions concerns or change in symptoms to contact the office. Patient verbalized understanding and is in agreement with plan. Admission and Anticipated Discharge Date Admission Date: January 07, 2023 Subjective Patient is a 67 y.o post op day #1Status post a right reverse total shoulder arthroplasty with Dr. Kee. She is sitting upright in bedside chair dressed with sling in place on the right upper extremity. She states she is feeling pretty good. She states she did have pain once the block wore off. She is waiting to get pain medication from nurse prior to being discharged. She denies any numbness or tingling in her fingers. She states she is doing well denies any fever, chills, chest pain or shortness of breath or dizziness. She is aware that she is on Eliquis for DVT prophylaxis. She offers no concerns or questions. Review of Systems Review of Systems: Please refer to HPI Physical Exam Physical Exam: General patient is alert and oriented x3 pleasant and conversive no acute distress Integumentary/muscle skeletal: Sling is in place. I assisted patient with buttoning shirt and exposing dressing. Dressing is intact negative for any soiling. This was removed. Zip line is in place with zip guards. No drainage or erythema surrounding the area. She is starting to have ecchymosis over the inner aspect of the right arm and over the anterior chest which is to be expected. I applied a Silverlon dressing over Zipline/zip guards. Patient is able to actively flex and extend fingers and wrist and elbow. Patient was p laced back into a sling. Right upper extremity is neurovascularly intact Results & Data Vital Signs (Past 12 Hours) Vital Signs Temp Pulse Pulse Resp BP Pulse Ox O2 Del Method 01/08/23 11:19 37.7 C H 94 H 20 101/68 93 Room Air 01/08/23 10:04 Room Air 01/08/23 07:45 37.6 C H 88 18 144/73 H 90 Room Air 01/08/23 06:00 94 H 01/08/23 03:19 37.9 C H 107 H 18 124/80 91 Room Air
--- NOTE | 2023-01-08 16:08 | Electrocardiogram Report ---
Test Reason : Blood Pressure : / mmHG Vent. Rate : 104 BPM Atrial Rate : 111 BPM P-R Int : 000 ms QRS Dur : 086 ms QT Int : 342 ms P-R-T Axes : 000 -12 008 degrees QTc Int : 449 ms Atrial fibrillation with rapid ventricular response Possible Anterolateral infarct (cited on or before 08-JAN-2023) Abnormal ECG When compared with ECG of 07-JAN-2023 14:58, Atrial fibrillation has replaced Junctional rhythm Nonspecific T wave abnormality now evident in Inferior leads Confirmed by Rafa Moss ([id number]) on 01/08/2023 4:08:28 PM Referred By: Isaias Kee Confirmed By:Rafa Moss
--- OUTSIDE RECORDS SUMMARY | 2023-01-11 17:21 | External Medical Summary | Continuity of Care Document ---
Author Name Unknown Organization [id number] Address [address] [place] [id number] Care Team Providers Care Cargo Broker Name Role Phone Aubrey Liu Shannon Primary Care Physician [phone] [id number] Date(s): 12/23/22 - 12/23/22 [facility] [address] [id number] [facility] [address] [place] [id number] Encounter Diagnosis Rotator cuff arthropathy of right shoulder(Discharge Diagnosis) - 12/23/22 Discharge Disposition: Home or Self Care Attending Physician: WILBERT Jorgensen, Jeremiah Bell Referring Physician: MD Chilango, Isaias A Allergies, Adverse Reactions, Alerts No Known Allergies Medications amoxicillin 500 mg oral capsule Start: 07/10/20 9:32:00 EDT, 4 cap, PO, ONCE, Disp# 4 cap, Refills: 2, take 1 hour prior to the dental visit/procedure, Pharmacy: [facility]/pharmacy #[id number] Start Date: 07/10/20 Status: Ordered azelastine 137 mcg/inh (0.1%) nasal spray INSTILL 2 SPRAYS INTO EACH NOSTRILS DAILY FOR CONGESTION NEEDED Start Date: 06/27/22 Status: Ordered calcium (as carbonate) 600 mg oral tablet Start: 06/27/22 10:44:00 EDT Start Date: 06/27/22 Status: Ordered [facility] OLOPATADINE 0.2% EYE DROP INSTILL 1 DROP INTO BOTH EYES DAILY NEEDED FOR ALLERGIES. Start Date: 08/06/22 Status: Ordered Cymbalta Start: 07/10/20 9:11:00 EDT, 60 mg =, PO, Daily Start Date: 07/10/20 Status: Ordered Flonase Start: 09/19/21 11:16:00 EDT, 50 mcg =, Daily, prn Start Date: 09/19/21 Status: Ordered letrozole 2.5 mg oral tablet Start: 06/27/22 10:43:00 EDT, Start Date: 06/27/22 Status: Ordered Motrin Start: 06/10/11 11:29:00, 400mg PRN Start Date: 06/10/11 Status: Ordered Pepcid Start: 07/10/20 9:11:00 EDT Start Date: 07/10/20 Status: Ordered Tylenol 500 mg oral tablet Start: 06/10/11 11:29:00, 2 tab, PO, q6h, PRN: as needed for pain Start Date: 06/10/11 Status: Ordered Vitamin B12 Start: 06/27/22 10:44:00 EDT Start Date: 06/27/22 Status: Ordered Vitamin D3 Start: 06/27/22 10:44:00 EDT Start Date: 06/27/22 Status: Ordered ZyrTEC 10 mg oral tablet Start: 09/19/21 11:16:00 EDT, 1 tab, PO, Daily, PRN: as needed for allergy symptoms Start Date: 09/19/21 Status: Ordered Mental Status 12/23/22 Barriers to Learning one year None evide nt Mandatory Health Literacy Documentation Yes Health Literacy Communication Barriers N ever Primary Language Senegalese Problem List Condition Confirmation Course Effective Dates Status Health St atus Informant Heartburn Confirmed Active History of endometrial cancer Confirmed Active S/P foot surgery, left Confirmed Active Status post revision of total replacement of left knee Confirmed Active Ingrown left big toenail Confirmed Active Endometrial cancer Confirmed Active 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 Confirmed Active Rotator cuff arthropathy of right shoulder Confirmed Active Tinea pedis, left Confirmed Active Diagnosis Diagnosis Type Effective Dates Health Status Clinical Service Informant Rotator cuff arthropathy of right shoulder Discharge Diagnosis 12/23/22 Procedures Procedure Date Related Diagnosis Body Site Status Eye 1 Completed Gallbladder Completed Hysterectomy Completed Knee replacement 2 Comple matthias Tonsillectomy with adenoidectomy Completed 1right eye surgery 2bilaterial Vital Signs Most recent to oldest [Reference Range]: 1 Temperature [36.5-37.9 DegC] 36.5 DegC (12/23/22 3:19 PM) Respiratory Rate 20 br/min (12/23/22 3:19 PM) Blood Pressure 146/82mmHg (12/23/22 3:19 PM) Cuff Pulse Pressure 64 mmHg (12/23/22 3:19 PM) Social History Social History Type Response Smoking Status Never smoked cigaret camille Sex Female Pre-OP H & P * WILBERT Jorgensen Cory D: PERFORM, MODIFY Event Display: Pre-OP H & P Authored Date: [id number] PRE-OPERATIVE HISTORY AND PHYSICAL Name: SHAR PETERS Patient Number: [id number] : 1955 Date of Service: 12/23/2022 PRE-OP Diagnosis: Right shoulder rotator cuff arthropathy/DJD Planned Procedure: Right shoulder reverse total shoulder arthroplasty Chief Complaint: Right shoulder pain and loss of motion History of Present Illness (including history relevant to procedure): This 67-year-old female presents today for her preoperative history and physical. She is scheduled to undergo a right shoulder reverse total shoulder arthroplasty on 01/07/2023. The patient has a longstanding history of right shoulder pain and dysfunction. Symptoms became acutely worse in July of this year when she fell. MRI imaging this summer confirmed a massive rotator cuff tear. She continues to have pain associated with motion and limitations in function that is affecting her ADLs. [id number]. She has tried activity modification, OTC medications, and physical therapy without improvement. Physical therapy made her symptoms worse. She denies any numbness or tingling. Preoperative imaging has been obtained. Review Of Systems: A total of 10 systems were reviewed and are significant for below stated conditions. Family history: Significant for breast cancer in her mother and grandmother. Social history: No tobacco use. No EtOH use. . 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 Procedure History Procedure Procedure Date Comments Gallbladder 1990 Hysterectomy 2013 Tonsillectomy with adenoidectomy Eye 1962,1978 - right eye surgery Knee replacement Right breast lumpectomy 2006,06/2018 - bilaterial Allergies and Sensitivities: NKA Current Home Meds: (Last Updated 12/23 15:18) DULoxetine (Cymbalta) 60 mg PO Daily acetaminophen (Tylenol 500 mg oral tablet) 2 tab PO q6h PRN: as needed for pain amoxicillin (amoxicillin 500 mg oral capsule) 2,000 mg PO ONCE take 1 hour prior to the dental visit/procedure azelastine nasal (azelastine 137 mcg/inh (0.1%) nasal spray) INSTILL 2 SPRAYS INTO EACH NOSTRILS DAILY FOR CONGESTION NEEDED calcium carbonate (calcium (as carbonate) 600 mg oral tablet) cetirizine (ZyrTEC 10 mg oral tablet) 10 mg PO Daily PRN: as needed for allergy symptoms cholecalciferol (Vitamin D3) cyanocobalamin (Vitamin B12) famotidine (Pepcid) fluticasone nasal (Flonase) 50 mcg Daily prn ibuprofen (Motrin) letrozole (letrozole 2.5 mg oral tablet) unlisted medication ([facility] OLOPATADINE 0.2% EYE DROP) INSTILL 1 DROP INTO BOTH EYES DAILY NEEDED FOR ALLERGIES. Vitals: Last Updated 12/23/22 15:19 Weights: No Weight Data Available Date Temp Pulse BP RR SpO2 FIO2 Date Wt(kg) Wt(lb) 12/23 15:19 36.5 146/82 20 95 24 Hr Tmax: 36.5 at 12/23 15:19 Initial Wt: No Data Available Physical Exam: (relevant to the procedure, including heart and lung evaluation) General: Well-developed, well-nourished, middle-aged female, in no acute distress. Sitting in a chair. Alert and oriented. HEENT: Normocephalic, atraumatic. Eyes PERRLA, EOMI. Nares patent bilaterally without nasal drainage. Oropharynx without erythema or exudate. Neck: No JVD. Cardiac: RRR. No MGR. Peripheral pulses are 2+. Lungs: Clear to auscultation bilaterally. No crackles, rhonchi, or wheezing. Good air movement. Abdomen: Obese. Bowel sounds present x4. Soft nontender. No organomegaly. No masses. Extremities: Right shoulder exam reveals no obvious asymmetry or deformity. She has significant limitation in motion. Forward flexion of 70 degrees, abduction of 70 degrees, external rotation of around 30 degrees. Behind the back reach to belt line. There is focal discomfort with palpation over theanterior and posterior glenohumeral joint. She has full range of motion of her elbow. Neuro: Gross sensation is intact across the right arm by soft touch. Skin: Warm and dry with good turgor. No rashes. No ecchymosis or edema. No open wounds. Studies of Lab Results (relevant to the procedure): Radiographic imaging previously obtained shows DJD of the right shoulder. MRI previously obtained shows a massive rotator cuff tear. No evidence offracture or dislocation. ASSESSMENT: Right shoulder rotator cuff arthropathy/DJD Plan: Approximate 20 minutes was spent with the patient reviewing operative procedure, postoperative recovery, physical therapy requirements, and medication use. Postoperative prescription for oxycodone will be sent at discharge from the hospital. DVT prophylaxis will be ibuprofen or aspirin. The patient will be doing physical therapy at [facility] in [place]. Prescription has already been provided. She denies any current COVID-19 symptoms. PDMP was checked and there are no concerning findings.She will follow-up in the office on January 20 with Diandra ATKINS for staple removal. Medical clearance has already been obtained from her PCP. This dictation has been completed using [employer] text voice recognition software. Grammatical errors, omissions, insertions, and misspellings may be present due to the limitations of the software. Electronic Signature on File Electronically Reviewed/Signed by: Jeremiah Jorgensen PA-C Author Signature Dt/Tm:12/23/2022 04:08 PM Division of Sports Medicine Electronically Reviewed/Signed by: Isaias Kee MD Cosigner Signature Dt/Tm: 12/24/2022 08:04 AM [facility] [employer] Line Technician Department of Orthopaedics and Rehabilitation [facility] [address], [place] [address] CDS Patient Care team information Care Team Personnel Name: MD Casey Gregory G Position: Physician - Sports Medicine [place] Member Role: Lifetime Relationship Address: Address: [address] [address] Name: CHAY Liu Matthew J Position: Referring Member Role: Primary Care Provider Address: Address: [facility] [address] [place] [address] [place] Care Team Related Persons Name: VASU PETERS Address: home No Address Provided
--- OUTSIDE RECORDS SUMMARY | 2023-01-11 17:21 | External Medical Summary | Continuity of Care Document ---
Author Name Unknown Organization [place] [id number] Address [address] [place] [phone] Care Team Providers Care Blasting Miner Name Role Phone Aubrey Liu Primary Care Physician [phone] [id number] Date(s): 11/26/22 - 11/26/22 [facility] [address] [id number] [facility] [address] [place] [address] Encounter Diagnosis Rotator cuff arthropathy of right shoulder(Discharge Diagnosis) - 11/26/22 Discharge Disposition: Home or Self Care Attending Physician: MD Chilango, Isaias Salgado Allergies, Adverse Reactions, Alerts No Known Allergies Assessment and Plan Extracted from: Title:Isaias Kee Author:Fidelina Payton Date: Impression:67-year-old Female with right shoulder rotator cuff arthropathy Plan: After a lengthy discussion with the patient today regarding my above clinical findings, as well as reviewing their imaging with them, their treatment options of conservative management versus surgical intervention were discussed. - The risk and benefits of each were discussed. - The risks of surgery included but not limited to: Infection, bleeding, nerve damage, continued pain, instability, stiffness, fracture, failure of the hardware, and deep vein thrombosis. They would like to proceed with surgery and informed consent was signed for right reverse TSA. - They will speak with mysurgery ticket scheduler and have a history and physical examination performed. - She will get a CT scan of her right shoulder prior to surgery. The patient understood all my instructions and explanation: all their questions were satisfactorily addressed. Medications amoxicillin 500 mg oral capsule Start: 07/10/20 9:32:00 EDT, 4 cap, PO, ONCE, Disp# 4 cap, Refills: 2, take 1 hour prior to the dental visit/procedure, Pharmacy: [facility]/pharmacy #[id number] Start Date: 07/10/20 Status: Ordered azelastine 137 mcg/inh (0.1%) nasal spray INSTILL 2 SPRAYS INTO EACH NOSTRILS DAILY FOR CONGESTION NEEDED Start Date: 06/27/22 Status: Ordered calcium (as carbonate) 600 mg oral tablet Start: 06/27/22 10:44:00 EDT Start Date: 06/27/22 Status: Ordered [facility] OLOPATADINE 0.2% EYE DROP INSTILL 1 [...] Start Date: 09/19/21 Status: Ordered Mental Status 11/26/22 Barriers to Learning one year None evide nt Mandatory Health Literacy Documentation Yes Health Literacy Communication Barriers N ever Primary Language Kiswahili Problem List Condition Confirmation Course Effective Dates [...] cuff arthropathy of right shoulder Discharge Diagnosis 11/26/22 Procedures Procedure Date Related Diagnosis Body Site Status Eye 1 Completed Gallbladder Completed Hysterectomy Completed Knee replacement 2 Comple matthias Tonsillectomy with adenoidectomy Completed 1right eye surgery 2bilaterial Social History Social History Type Response Smoking Status Never smoked cigaret camille Sex Female Ortho Outpt Note * MD Chilango, Isaias A: MODIFY MD Chilango, Isaias A: MODIFY, MODIFY Event Display: Ortho Outpt Note Authored Date: [id number] Primary Care Provider CHAY Liu Matthew J Chief Complaint Right reverse TSA consent History of Present Illness [id number] presents today forright reverse TSA consent. She fell in July of this year and went to the ER afterwards where she stated there were no fractures. Patient's arm later turned black and blue and she received an MRI. She has had a lymph node and lipoma excision done on her right arm within the last year.Today she rates her painas a 4/10. She was referred by Dr. Alicia. Review of Systems A 14 point review of systems isavailable in the EMR. Physical Exam Focusing on the patient's right upper extremity: 2+ radial pulse Sensation to light touch is intact distally Motor to the median, radial, ulnar, AIN, PIN, musculocutaneous nervesis intact. Full range of motion of their elbow, forearm, and wrist. Range of motion of the shoulder: Forward elevation 60, Active assisted 155; Abduction 80, Active assisted 155; External rotation 20; internal rotation L-5. Previous incision in the midupper arm is well-healed, no evidence of infection. Diagnostic Results X-ray imaging: AP, scapular-Y, and axillary views of [facility] shoulderobtainedon 3andreviewed byme show no acute fracture or dislocation. There are milddegenerative changesin the subacromial space. MRI done on 09/11/2022 reviewed by me show humeral head superior migration and complete tear of the supraspinatus, infraspinatus, and subscapularis with retraction. Biceps is not in bicipital groove. There is intramuscular edema and massive rotator cuff tear of the supraspinatus, infraspinatus, and subscapularis. MRI is poor quality. Assessment/Plan Impression:[id number] with right shoulder rotator cuff arthropathy Plan: After a lengthy discussion with the patient today regarding my above clinical findings, as well as reviewing their imaging with them, their treatment options of conservative management versus surgical intervention were discussed. - The risk and benefits of each were discussed. - The risks of surgery included but not limited to: Infection, bleeding, nerve damage, continued pain, instability, stiffness, fracture, failure of the hardware, and deep vein thrombosis. They would like to proceed with surgery and informed consent was signed for right reverse TSA. - They will speak with mysurgery ticket scheduler and have a history and physical examination performed. - She will get a CT scan of her right shoulder prior to surgery. The patient understood all my instructions and explanation: all their questions were satisfactorilyaddressed. Attestation I, Fidelina Payton, have scribed for, and in the presence of, Isaias Kee on this date,1:37:23. I, Dr. Kee, saw and examined the patient with Fidelina Payton acting as my scribe. I reviewed the note and agree with the documented findings and the plan of care I developed. 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 Procedure/Surgical History Knee replacementEyeTonsillectomy with adenoidectomyHysterectomyGallbladder Medications acetaminophen(Tylenol 500 mg oral tablet), 2 tab, PO, q6h, PRN amoxicillin(amoxicillin 500 mg oral capsule), 2000 mg= 4 cap, PO, ONCE, 2 refills azelastine nasal(azelastine 137 mcg/inh (0.1%) nasal spray) calcium carbonate(calcium (as carbonate) 600 mg oral tablet) cetirizine(ZyrTEC 10 mg oral tablet), 10 mg= 1 tab, PO, Daily, PRN cholecalciferol(Vitamin D3) cyanocobalamin(Vitamin B12) DULoxetine(Cymbalta), 60 mg, PO, Daily famotidine(Pepcid) fluticasone nasal(Flonase), 50 mcg, Daily ibuprofen(Motrin), 400mg PRN letrozole(letrozole 2.5 mg oral tablet) unlisted medication([facility] OLOPATADINE 0.2% EYE DROP) Allergies NKA Social History Smoking Status Never smoked cigarettes Tobacco - Denies Tobacco Use Family History Breast cancer: Mother and PGM. Health Status Family Member(s) Recommendations Health Maintenance Pending(in the next year) OverDue Adult Influenza Vaccine due08/31/22and every 1year Due Adult COVID-19 Vaccination due11/26/22Unknown Frequency Adult Tdap/Td Vaccine due11/26/22Unknown Frequency Breast Cancer Screening due11/26/22Unknown Frequency Colorectal Cancer Screening due11/26/22Unknown Frequency Falls Plan of Care due11/26/22nown Frequency Hepatitis C Screening due11/26/22One-time only Lipid Screening due11/26/22Unknown Frequency Medicare Annual Wellness Visit due11/26/22and every 1year Osteoporosis Screening due11/26/22One-time only Pneumococcal Vaccine Older Adults due11/26/22One-time only Shingles Vaccine due11/26/22One-time only Due In Future Body Mass Index not due until11/18/23and every 1year Satisfied(in the past 1 year) Satisfied Body Mass Index on11/18/22.Satisfied by RIKI Pineda Mackenzie A Electronic Signature on File CC: Kyler Alicia MD [id number] [id number] Electronically Reviewed/Signed by: Fidelina Payton Author Signature Dt/Tm:11/26/2022 11:52 AM Electronically Reviewed/Signed by: Isaias Kee MD Cosigner Signature Dt/Tm: 11/26/2022 01:04 PM [facility] Employee Relations Consultant Department of Orthopaedics and Rehabilitation [facility] [address], [place] [address] [place] Patient Care team information Care Team Personnel Name: MD Jacinto, Hayder Lerner Position: Physician - Sports Medicine [place] Member Role: Lifetime Relationship Address: Address: [address] [address] Name: CHAY Liu Matthew J Position: Referring Member Role: Primary Care Provider Address: Address: [facility] [address] [place] [address] Care Team Related Persons Name: VASU PETERS Address: home No Address Provided
--- OUTSIDE RECORDS SUMMARY | 2023-01-11 17:21 | External Medical Summary | Continuity of Care Document ---
Author Name Unknown Organization [place] [id number] Address [address] [place] [phone] Care Team Providers Care Furnace Tapper Name Role Phone Aubrey Liu Primary Care Physician [phone] [id number] 11/18/22 [facility] [address] [id number] [facility] [address] [place] [address] Encounter Diagnosis Rotator cuff arthropathy of right shoulder(Discharge Diagnosis) - 11/18/22 Discharge Disposition: Home or Self Care Attending Physician: MD Ravin, Kyler Ortega Allergies, Adverse Reactions, Alerts No Known Allergies Medications amoxicillin 500 mg oral capsule Start: 07/10/20 9:32:00 EDT, 4 cap, PO, ONCE, Disp# 4 cap, Refills: 2, take 1 hour prior to the dental visit/procedure, Pharmacy: [facility]/pharmacy #[id number] Start Date: 07/10/20 Status: Ordered azelastine 137 mcg/inh (0.1%) nasal spray INSTILL 2 SPRAYS INTO EACH NOSTRILS DAILY FOR CONGESTION NEEDED Start Date: 06/27/22 Status: Ordered calcium (as carbonate) 600 mg oral tablet Start: 06/27/22 10:44:00 EDT Start Date: 06/27/22 Status: Ordered [facility] OLOPATADINE 0.2% EYE DROP INSTILL 1 [...] Start Date: 09/19/21 Status: Ordered Mental Status 11/18/22 Barriers to Learning one year None evide nt Mandatory Health Literacy Documentation Yes Health Literacy Communication Barriers N ever Primary Language Maltese Problem List Condition Confirmation Course Effective Dates [...] cuff arthropathy of right shoulder Discharge Diagnosis 11/18/22 Procedures Procedure Date Related Diagnosis Body Site Status Eye 1 Completed Gallbladder Completed Hysterectomy Completed Knee replacement 2 Comple matthias Tonsillectomy with adenoidectomy Completed 1right eye surgery 2bilaterial Vital Signs Most recent to oldest [Reference Range]: 1 Height 162.5 cm (11/18/22 10:16 AM) Patient Weight 123 kg (11/18/22 10:16 AM) Body Mass Index 46.58 kg/m2 (11/18/22 10:16 AM) Temperature [36.5-37.9 DegC] 36.4 DegC *LOW* (11/18/22 10:16 AM) Heart Rate 120 bpm (11/18/22 10:16 AM) Blood Pressure 130/82mmHg (11/18/22 10:16 AM) Cuff Pulse Pressure 48 mmHg (11/18/22 10:16 AM) Social History Social History Type Response Smoking Status Never smoked cigaret camille Sex Female Ortho Outpt Note * Leidy Rahman: PERFORM, MODIFY Event Display: Ortho Outpt Note Authored Date: [id number] Name:SHAR PETERS Patient Number:[id number] :1955 Date of Service:11/18/2022 CHIEF COMPLAINT: Evaluation of right shoulder HPI: [age] yearoldFemale, right hand dominant, who presents today forevaluation of right shoulder pain and surgical consent form. Patient reports she had a fall in07/09/2022 while cutting the grassand injured her whole right side. She developed bruising on her right shoulder afterward. She had x-rays, ultrasound evaluation, and an MRI. She was told she had tear of all three rotator cuff tendons. Patient state she has fallen three times in the past year, primarily onto her right side. Patient reports the cortisone injection did not provide significant symptom relief. She is currently scheduled for surgery with me on December 03, 2022. PHYSICAL EXAM: Focus on the right upper extremity: Sensation intact to the median, radial, ulnar, and axillary nerve distributions. Forward flexion 100 versus 160 passive 3/5 external rotation strength 4/5 Internal rotation strength 5/5 elbow flexion and extension strength Full cervical ROM DIAGNOSTIC REVIEW: I obtained and personally interpreted 3 views of the right shoulder which shows rotator cuff arthropathy, mild degenerative change, calcified subacromial space. I reviewed an MRI of the right shoulder from August 2022which shows significant retraction, fibrosis, superior migration of the humeral head, and fatty atrophy. IMPRESSION: Right shoulder irreparable rotator cuff, multi-tendon tear. High grade fibrosis of rotator cuff with marked retraction PLAN: Discussed that the best option is a reverse total shoulder arthroplasty. Consultation referral provided for Dr. Kee H&P pre-operative appointment cancelled for after today's appointment. Follow-up as needed ATTESTATION: I,Leidy Rahman, scribing for and in the presence of, Kyler Alicia, on this date,11/18/2022 10:11:58. Electronic Signature on File Electronically Reviewed/Signed by: Leidy Rahman Author Signature Dt/Tm:11/18/2022 10:34 AM Electronically Reviewed/Signed by: Kyler Alicia MD Cosigner Signature Dt/Tm: 11/18/2022 10:46 AM Manager Property for Clinical Affairs, [facility] Ray Professor in Orthopaedics Mill Crane Operator, [facility] Patient Care team information Care Team Personnel Name: MD Jacinto, Hayder Lerner Position: Physician - Sports Medicine [place] Member Role: Lifetime Relationship Address: [place] [address] [place] [address] [place] [id number] [place] Name: CHAY Liu Matthew J Position: Referring Member Role: Primary Care Provider Address: Address: [facility] [address] [place] [address] [place] Care Team Related Persons Name: VASU PETERS Address: home No Address Provided
--- OUTSIDE RECORDS SUMMARY | 2023-01-11 17:21 | External Medical Summary | Continuity of Care Document ---
Author Name Unknown Organization [facility] [id number] Address [address] [place] [phone] Care Team Providers Care Rugby League Footballer Name Role Phone Ericksonmariamaadama Aubrey Shannon Primary Care Physician [phone] [facility] [id number] Date(s): 12/05/22 - 12/05/22 [facility] [address] [id number] [facility] [address] [place] [address] Encounter Diagnosis Rotator cuff arthropathy of right shoulder(Discharge Diagnosis) - 12/05/22 Discharge Disposition: Home or Self Care Attending Physician: WILBERT Jim, Gabbi Referring Physician: MD Chilango, Isaias A Allergies, Adverse Reactions, Alerts No Known Allergies Medications amoxicillin 500 mg oral capsule Start: 07/10/20 9:32:00 EDT, 4 cap, PO, ONCE, Disp# 4 cap, Refills: 2, take 1 hour prior to the dental visit/procedure, Pharmacy: [facility]/pharmacy #[id number] Start Date: 07/10/20 Status: Ordered azelastine 137 mcg/inh (0.1%) nasal spray INSTILL 2 SPRAYS INTO EACH NOSTRILS DAILY FOR CONGESTION NEEDED Start Date: 06/27/22 Status: Ordered calcium (as carbonate) 600 mg oral tablet Start: 06/27/22 10:44:00 EDT Start Date: 06/27/22 Status: Ordered [facility] OLOPATADINE 0.2% EYE DROP INSTILL 1 [...] Start Date: 09/19/21 Status: Ordered Mental Status 12/05/22 Barriers to Learning one year None evide nt Mandatory Health Literacy Documentation Yes Health Literacy Communication Barriers N ever Primary Language Divehi Problem List Condition Confirmation Course Effective Dates [...] cuff arthropathy of right shoulder Discharge Diagnosis 12/05/22 Procedures Procedure Date Related Diagnosis Body Site Status Eye 1 Completed Gallbladder Completed Hysterectomy Completed Knee replacement 2 Comple matthias Tonsillectomy with adenoidectomy Completed 1right eye surgery 2bilaterial Vital Signs Most recent to oldest [Reference Range]: 1 Height 162.5 cm (12/05/22 11:08 AM) Patient Weight 123 kg (12/05/22 11:08 AM) Body Mass Index 46.58 kg/m2 (12/05/22 11:08 AM) Temperature [36.5-37.9 DegC] 36.3 DegC *LOW* (12/05/22 11:08 AM) Respiratory Rate 20 br/min (12/05/22 11:08 AM) Blood Pressure 142/84mmHg (12/05/22 11:08 AM) Cuff Pulse Pressure 58 mmHg (12/05/22 11:08 AM) Social History Social History Type Response Smoking Status Never smoked cigaret camille Sex Female Patient Care team information Care Team Personnel Name: MD Jacinto, Hayder Lerner Position: Physician - Sports Medicine [place] Member Role: Lifetime Relationship Address: Address: [address] [place] [address] [place] [id number] Name: CHAY Liu Matthew J Position: Referring Member Role: Primary Care Provider Address: Address: [facility] [address] [facility] [facility] [place] [address] [place] Care Team Related Persons Name: VASU PETERS Address: home No Address Provided
== END 2023-01-08 14:20 | disposition home health service (06) ==
LOC: ASU 08:23 → 2N 08:23